=== PATIENT | female | born 1955 | race Caucasian/White ===

== ENCOUNTER 2020-08-17 15:00 | Outpatient (RCR) | payer OTHER, SELFPAY ==
--- NOTE | 2020-07-11 12:24 | MHC.PT.EP ---
[facility] [place] Office [place] [facility] [place] Office [address] Citlalli Hebert [address] [phone] F: [phone] F: [phone] F: [phone] F: [phone] Physical Therapy Plan of Care Date of Evaluation: 07/11/20 Date of Surgery: N/A Diagnosis: cervical disc disorder, unspecified cervical region Assessment: Working PT diagnoses include cervicogenic dizziness, BPPV, and cervical radiculopathy. Will continue to monitor and treat as appropriate. pt presents to physical therapy with pain, decreased range of motion, and impaired postural awareness. pt is a good candidate for skilled PT due to age, potential remediation of impairments, typical disease/condition progression and prognosis, comorbidities, and motivation. pt would benefit from tailored strengthening and stretching exercise program, functional training, postural re-training, neuromuscular re-education, and modalities as needed for pain. Frequency and Duration: The patient will be seen 2x/wk for 5 wks Short Term Goals: pt will be I w/ HEP to promote self-management of condition. pt will improve L cervical rotation by 15 degrees to facilitate ease in mobility for driving. Jail Goals: pt will report statistically significant improvement in self-reported outcome measure, NDI, to promote return to PLOF. pt will report <1/10 L sided neck pain w/ lifting 30# object from ground to chest height to facilitate full return to work. Treatment Plan: Modalities to reduce pain, spasms and effusion. Manual therapy to restore motion and function. Therapeutic exercise to improve strength and flexibility. Neuromuscular re-education for posture and balance. Therapeutic activities to return to functional activities of daily living. Please sign and return to therapist. Thank you for your referral.
--- NOTE | 2020-08-26 09:32 | MHC.PT.DC ---
[facility] [place] Office [place] Office [place] Office [address] Citlalli Hebert [address] [phone] F: [phone] F: [phone] F: [phone] F: [phone] Physical Therapy Discharge Report Diagnosis: cervical disc disorder, unspecified cervical region Date of Surgery: N/A Date of Evaluation: 07/11/20 Date of Discharge: 08/26/20 Treatments to Date: 7 Cancellations to Date: 6 No Shows to Date: 1 Discharge Status: Independent with HEP Patient Elected to Stop Recommend MD Follow-up Discharge Summary: The patient had difficulty progressing in physical therapy. She was unable to increase resistance of the therapeutic exercises throughout this plan of care without significantly increasing pain and symptoms. She would consistently report feeling better when she left therapy but the pain would return after a work day. She is independent with her home exercise program of cervical stretching, cervical active assisted range of motion, periscapular strengthening, and postural exercises. She called our office to discharge herself from this physical therapy plan of care. Electronically signed by: Karen Alonzo PT, DPT Please sign and return to therapist. Thank you for your referral.
== END 2020-08-26 09:32 | disposition other institution (70) ==
LOC: HO.PT 15:00
PROVIDERS: PCP Internal Medicine; Visit Provider Internal Medicine
DX: M50.90 Cervical disc disorder, unspecified, unspecified cervical region (principal); R42 Dizziness and giddiness
CPT/HCPCS: 97110; 97140; 97161

== ENCOUNTER 2020-11-14 06:58 | Outpatient (REF) | payer OTHER, SELFPAY ==
[2020-11-14 07:29] LABS: MANUAL DIFF FLAG NO
[2020-11-14 07:39] LABS: Basophils Absolute Auto 0.1 X10*3/uL (0.0-0.2); Eosinophils Absolute Auto 0.1 X10*3/uL (0.0-0.4); Eosinophils Percent Auto 1.7 % (0-4); Hematocrit 43.4 % (37-47); Hemoglobin 14.2 g/dl (12.0-16.0); Lymphocytes Absolute Auto 2.7 X10*3/uL (1.2-4.9); Lymphocytes Percent Auto 50.5 % (20-40); Mean Corpuscular HGB Conc 32.7 g/dl (31.0-35.0); Mean Corpuscular Hemoglobin 30.5 pg (27.0-33.0); Mean Corpuscular Volume 93.3 fL (80-98); Mean Platelet Volume 9.7 fL (9.4-12.3); Monocytes Absolute Auto 0.2 X10*3/uL (0.1-1.2); Monocytes Percent Auto 4.2 % (2-11); Neutrophils Absolute Auto 2.2 X10*3/uL (2.0-8.3); Neutrophils Percent Auto 42.6 % (45-73); Platelet Count 300 X10*3/uL (160-400); Red Blood Count 4.65 X10*6/uL (4.20-5.50); Red Cell Distribution Width 12.9 % (11.0-16.0); White Blood Count 5.3 X10*3/uL (4.8-10.8)
[2020-11-14 07:54] LABS: Glucose Urine UA NEG (NEG); Nitrite Urine NEG (NEG); Specific Gravity - Urine 1.025 (1.005-1.025); Urine Blood TRACE (NEG); Urine Ketones NEG (NEG); Urine Protein NEG (NEG-TRACE)
[2020-11-14 07:55] LABS: Leukocyte Esterase Urine NEG (NEG)
[2020-11-14 07:56] LABS: Appearance Urine CLEAR; Color Urine YELLOW
[2020-11-14 08:05] LABS: RBC Urine 0-2 /HPF (0); Squamous Epithelial Cell Urine TRACE /LPF; WBC Urine 0 /HPF (0-4)
[2020-11-14 08:21] LABS: Alanine Aminotransferase 45 U/L (0-31); Albumin Level 4.3 g/dL (3.5-5.0); Alkaline Phosphatase 67 U/L (39-117); Anion Gap 12 (12-20); Aspartate Amino Transferase 32 U/L (5-31); Bilirubin Total 0.5 mg/dL (0.0-1.0); Blood Urea Nitrogen 19 mg/dL (9-16); Calcium 9.2 mg/dL (8.4-10.2); Carbon Dioxide 28 mmol/L (22-29); Chloride 104 mmol/L (96-108); Cholesterol 239 mg/dL; Estimated Glomerular Filt Rate > 60; Glucose Fasting 101 mg/dL (60-99); HDL Cholesterol 91 mg/dL; LDL Cholesterol Calculated 136 mg/dl; Potassium 4.4 mmol/L (3.3-5.1); Sodium 140 mmol/L (135-145); Total Protein 7.1 g/dL (6.5-8.0); Triglycerides 64 mg/dL
[2020-11-14 08:53] LABS: TSH reflex Free T4 3.19 uIU/mL (0.32-4.0); Vitamin D 25-OH Total 34.5 ng/mL (>30)
== END 2020-11-14 06:59 | disposition home or self-care (01) ==
LOC: HO.LAB 06:58
PROVIDERS: PCP Internal Medicine; Visit Provider Internal Medicine
DX: Z00.00 Encounter for general adult medical examination without abnormal findings (principal); R42 Dizziness and giddiness; D72.819 Decreased white blood cell count, unspecified; E55.9 Vitamin D deficiency, unspecified
CPT/HCPCS: 36415; 80053; 80061; 81001; 82306; 84443; 85025

== ENCOUNTER 2021-07-11 06:41 | Outpatient (REF) | payer MEDICARE, SELFPAY ==
--- NOTE | ~2021-07-11 | XR_ITS ---
EXAMINATION: XR ABDOMEN KUB CLINICAL INDICATION: Lower back pain COMPARISON: None TECHNIQUE: AP view of the abdomen. FINDINGS: Nonobstructive bowel gas pattern. No dilated loops of bowel. Gas and stool throughout the colon with moderate colonic stool burden. Right upper quadrant surgical clips noted. The lung bases are clear. No acute osseous abnormality. XR/XR KUB IMPRESSION: Moderate colonic stool burden.
[2021-07-11 08:21] LABS: Appearance Urine CLEAR; Color Urine STRAW; Glucose Urine UA NEG (NEG); Leukocyte Esterase Urine NEG (NEG); Nitrite Urine NEG (NEG); Specific Gravity - Urine <= 1.005 (1.005-1.025); Urine Blood NEG (NEG); Urine Ketones NEG (NEG); Urine Protein NEG (NEG-TRACE)
== END 2021-07-11 06:42 | disposition home or self-care (01) ==
LOC: HO.XRAY 06:41
PROVIDERS: PCP Internal Medicine; Visit Provider Physician Assistant
DX: M54.40 Lumbago with sciatica, unspecified side (principal); R30.0 Dysuria
CPT/HCPCS: 74018; 81003

== ENCOUNTER 2021-07-28 10:05 | Outpatient (REF) | payer MEDICARE, SELFPAY ==
--- NOTE | ~2021-07-28 | US_ITS ---
EXAMINATION: US RETROPERITONEAL LIMITED (RENAL ONLY) CLINICAL INFORMATION: Unspecified abdominal pain. COMPARISON: KUB 07/11/2021. TECHNIQUE: Real-time imaging of the kidneys. FINDINGS: RIGHT KIDNEY: 9.0 x 3.9 x 6.3 cm (SAG x AP x TRV). The kidney is normal in size, contour, and echogenicity. Renal cortical thickness is normal. No calculi or focal parenchymal lesions. No hydronephrosis. LEFT KIDNEY: 9.3 x 4.9 x 5.6 cm (SAG x AP x TRV). The kidney is normal in size, contour, and echogenicity. Renal cortical thickness is normal. No calculi or focal parenchymal lesions. No hydronephrosis. US/US renal BI IMPRESSION: Unremarkable renal ultrasound.
== END 2021-07-28 10:06 | disposition home or self-care (01) ==
LOC: HO.HMGCX 10:05
PROVIDERS: PCP Internal Medicine; Visit Provider Physician Assistant
DX: R10.11 Right upper quadrant pain (principal)
CPT/HCPCS: 76775

== ENCOUNTER 2022-02-23 07:09 | Outpatient (REF) | payer MEDICARE, SELFPAY | END 2022-02-23 07:10 | disposition home or self-care (01) | LOC: HO.LAB 07:09 | PROVIDERS: PCP Internal Medicine; Visit Provider Internal Medicine | DX: Z13.89 Encounter for screening for other disorder (principal) ==

== ENCOUNTER 2022-05-22 08:31 | Outpatient (REF) | payer MEDICARE, SELFPAY ==
--- NOTE | ~2022-05-22 | MM_ITS ---
EXAMINATION: BONE DENSITOMETRY CLINICAL INDICATION: Asymptomatic menopausal state. COMPARISON: Previous BD dated 11/08/2017 and baseline BD dated 06/30/2010. TECHNIQUE: Using a [employer] DXA System (software version: 13.1) manufactured by [employer], dual-energy x-ray absorptiometry was performed of the lumbar spine and left hip. The images are of good technical quality. Summary results are attached. FINDINGS: AP SPINE L1-L4: Current: BMD 0.923 g/cm2, Z-score -0.3, T-score -2.1, osteopenia, 1.5% decrease from previous, 8.1% decrease from baseline (<5% change is not significant). Prior: BMD 0.937 g/cm2. Baseline: BMD 1.004 g/cm2. LEFT FEMUR, NECK: Current: BMD 0.536 g/cm2, Z-score -1.9, T-score -3.6, osteoporosis. Prior: BMD 0.625 g/cm2. Baseline: BMD 0.677 g/cm2. LEFT FEMUR, TOTAL: Current: BMD 0.573 g/cm2, Z-score -2.0, T-score -3.4, osteoporosis, 17.0% decrease from previous, 19.3% decrease from baseline (<5% change is not significant). Prior: BMD 0.690 g/cm2. Baseline: BMD 0.710 g/cm2. IDENTIFIED RISK FACTORS: Low calcium intake, osteoporosis, menopause. HISTORY OF FRACTURE: None listed. MEDICATIONS: None listed. MM/XR DEXA axial skeleton IMPRESSION: 1. DIAGNOSIS: Osteoporosis based on the lowest T-score value of -3.6 in the femoral neck applying World Health Organization criteria. 2. 10-YEAR FRACTURE RISK PREDICTION, FRAX: According to the guidelines, FRAX calculation should only be performed on patients in the osteopenia bone density category. Therefore, FRAX was not performed on this patient. 3. Treatment Recommendations: NOF guidelines recommend consideration for treatment in postmenopausal women and men age 50 and older presenting with the following: -A hip or vertebral (clinical or morphometric) fracture. -T-score less than or equal to -2.5 at the femoral neck or spine after appropriate evaluation to exclude secondary causes. -Low bone mass at the hip or spine and a 10-year fracture probability by FRAX of greater than or equal to 3% for hip fracture or greater than or equal to 20% for major osteoporotic fracture based on the [place] adapted WHO algorithm. 4. Other Recommendations: All treatment decisions require clinical judgment and consideration of individual patient factors, including patient preferences, comorbidities, previous drug use, risk factors not captured in the FRAX model (e.g. frailty, falls, vitamin D deficiency, increased bone turnover, interval significant decline in bone density) and possible under or overestimation of fracture risk by FRAX. Additional medical evaluation for secondary cause of low bone mineral density may be appropriate. FUTURE SCAN RECOMMENDATION: People with diagnosed cases of osteoporosis or at high risk for fracture should have regular bone mineral density tests. For patients eligible for Medicare, routine testing is allowed once every 2 years. The testing frequency can be increased to one year for patients who have rapidly progressing disease, those who are receiving or discontinuing medical therapy to restore bone mass, or have additional risk factors.
== END 2022-05-22 08:32 | disposition home or self-care (01) ==
LOC: HO.MAMMO 08:31
PROVIDERS: PCP Internal Medicine; Visit Provider Internal Medicine
DX: Z13.820 Encounter for screening for osteoporosis (principal); Z78.0 Asymptomatic menopausal state; M81.0 Age-related osteoporosis without current pathological fracture
CPT/HCPCS: 77080

== ENCOUNTER 2023-02-13 07:34 | Outpatient (REF) | payer MEDICARE, SELFPAY ==
[2023-02-13 07:45] LABS: MANUAL DIFF FLAG NO
[2023-02-13 08:34] LABS: Basophils Absolute Auto 0.1 X10*3/uL (0.0-0.2); Basophils Percent Auto 1.2 % (0-2); Eosinophils Absolute Auto 0.1 X10*3/uL (0.0-0.4); Eosinophils Percent Auto 3.1 % (0-4); Hematocrit 42.9 % (37.0-47.0); Hemoglobin 13.9 g/dl (12.0-16.0); Imm Gran Abs Auto 0.01 X10*3/uL (0.00-0.03); Imm Gran Pct Auto 0.2 % (0.0-0.4); Lymphocytes Absolute Auto 2.3 X10*3/uL (1.2-4.9); Lymphocytes Percent Auto 54.7 % (20-40); Mean Corpuscular HGB Conc 32.4 g/dl (31.0-35.0); Mean Corpuscular Hemoglobin 30.8 pg (27.0-33.0); Mean Corpuscular Volume 94.9 fL (80.0-98.0); Mean Platelet Volume 9.8 fL (9.4-12.3); Monocytes Absolute Auto 0.2 X10*3/uL (0.1-1.2); Monocytes Percent Auto 5.6 % (2-11); Neutrophils Absolute Auto 1.5 x10*3/uL (2.0-8.3); Neutrophils Percent Auto 35.2 % (45-73); Platelet Count 303 X10*3/uL (160-400); Red Blood Count 4.52 X10*6/uL (4.20-5.50); Red Cell Distribution Width 12.8 % (11.0-16.0); White Blood Count 4.3 X10*3/uL (4.8-10.8)
[2023-02-13 09:21] LABS: Alanine Aminotransferase 34 U/L (0-31); Albumin Level 4.2 g/dL (3.5-5.0); Alkaline Phosphatase 73 U/L (39-117); Anion Gap 12 (12-20); Aspartate Amino Transferase 25 U/L (5-31); Bilirubin Total 0.8 mg/dL (0.0-1.0); Blood Urea Nitrogen 14 mg/dL (9-16); Calcium 9.7 mg/dL (8.4-10.2); Carbon Dioxide 28 mmol/L (22-29); Chloride 105 mmol/L (96-108); Cholesterol 257 mg/dL; Estimated Glomerular Filt Rate > 60; Glucose Fasting 92 mg/dL (60-99); HDL Cholesterol 97 mg/dL; LDL Cholesterol Calculated 148 mg/dl; Potassium 4.1 mmol/L (3.3-5.1); Sodium 141 mmol/L (135-145); Total Protein 7.1 g/dL (6.5-8.0); Triglycerides 62 mg/dL
[2023-02-13 09:39] LABS: Vitamin D 25-OH Total 37.6 ng/mL (>30)
[2023-02-13 10:15] LABS: Appearance Urine Clear; Color Urine Yellow; Glucose Urine UA Negative (Negative); Leukocyte Esterase Urine Trace (Negative); Nitrite Urine Negative (Negative); PH 5.5 (5.0-9.0); Specific Gravity - Urine 1.015 (1.005-1.025); UMIC TRIGGER UACC YES; Urine Blood Trace (Negative); Urine Ketones Negative (Negative); Urine Protein Negative (Neg-Trace)
[2023-02-13 10:20] LABS: Bacteria Urine None Seen (None Seen); Hyaline Casts Urine 0-2 /LPF (0-2); RBC Urine 0-2 /HPF (0-2); Squamous Epithelial Cell Urine 0-2 /HPF (0-2); WBC Urine 0-5 /HPF (0-5)
[2023-02-15 17:49] LABS: Lyme Abs Screen <0.90 index
== END 2023-02-13 07:35 | disposition home or self-care (01) ==
LOC: HO.LAB 07:34
PROVIDERS: Internal Medicine; PCP Internal Medicine; Visit Provider Internal Medicine
DX: Z00.00 Encounter for general adult medical examination without abnormal findings (principal); E55.9 Vitamin D deficiency, unspecified; M81.0 Age-related osteoporosis without current pathological fracture; E78.00 Pure hypercholesterolemia, unspecified; T14.90XA Injury, unspecified, initial encounter; W57.XXXA Bitten or stung by nonvenomous insect and other nonvenomous arthropods, initial encounter; Y93.9 Activity, unspecified; Y92.9 Unspecified place or not applicable; Y99.9 Unspecified external cause status
CPT/HCPCS: 36415; 80053; 80061; 81001; 81003; 82306; 84443; 85025; 86617; 86618

== ENCOUNTER 2023-03-15 06:53 | Outpatient (REF) | payer MEDICARE, SELFPAY ==
--- NOTE | ~2023-03-15 | XR_ITS ---
EXAMINATION: XR lumbar spine 2-3V, XR sacroiliac joint min 3V CLINICAL INFORMATION: Reason for Exam M54.50 - Low back pain, unspecified COMPARISON: Lumbar spine radiographs 09/27/2017 TECHNIQUE: 3 views of the lumbar spine. 3 views of the sacroiliac joints. FINDINGS: 5 nonrib-bearing lumbar-type vertebral bodies. Vertebral body heights are maintained. Alignment is maintained. Minimal degenerative disc disease at L5-S1 with borderline loss of disc space height and mild facet arthropathy slightly progressed from prior. Right upper quadrant cholecystectomy clips. Mild degenerative changes of the right sacroiliac joint with subchondral sclerosis. Sacroiliac joint spaces are maintained. Mild degenerative changes of the hips with some mineralization noted lateral to the left femoral head which may reflect sequelae of chondrocalcinosis. XR/XR lumbar spine 2-3V IMPRESSION: 1. Minimal degenerative disc disease at L5-S1 slightly progressed from prior. 2. Mild degenerative changes of the right sacroiliac joint with subchondral sclerosis. Sacroiliac joint spaces are maintained. 3. Mild degenerative changes of the hips with some mineralization noted lateral to the left femoral head which may reflect sequelae of chondrocalcinosis.
--- NOTE | ~2023-03-15 | XR_ITS ---
EXAMINATION: XR lumbar spine 2-3V, XR sacroiliac joint min 3V CLINICAL INFORMATION: Reason for Exam M54.50 - Low back pain, unspecified COMPARISON: Lumbar spine radiographs 09/27/2017 TECHNIQUE: 3 views of the lumbar spine. 3 views of the sacroiliac joints. FINDINGS: 5 nonrib-bearing lumbar-type vertebral bodies. Vertebral body heights are maintained. Alignment is maintained. Minimal degenerative disc disease at L5-S1 with borderline loss of disc space height and mild facet arthropathy slightly progressed from prior. Right upper quadrant cholecystectomy clips. Mild degenerative changes of the right sacroiliac joint with subchondral sclerosis. Sacroiliac joint spaces are maintained. Mild degenerative changes of the hips with some mineralization noted lateral to the left femoral head which may reflect sequelae of chondrocalcinosis. XR/XR sacroiliac joint min 3V IMPRESSION: 1. Minimal degenerative disc disease at L5-S1 slightly progressed from prior. 2. Mild degenerative changes of the right sacroiliac joint with subchondral sclerosis. Sacroiliac joint spaces are maintained. 3. Mild degenerative changes of the hips with some mineralization noted lateral to the left femoral head which may reflect sequelae of chondrocalcinosis.
== END 2023-03-15 06:54 | disposition home or self-care (01) ==
LOC: HO.XRAY 06:53
PROVIDERS: PCP Internal Medicine; Visit Provider Internal Medicine
DX: M54.50 Low back pain, unspecified (principal)
CPT/HCPCS: 72100; 72202

== ENCOUNTER → 2023-04-18 08:15 | Outpatient (BNV) | payer MEDICARE, SELFPAY | PROVIDERS: PCP Internal Medicine; Visit Provider Radiology Diagnostic Radiology | DX: Z12.31 Encounter for screening mammogram for malignant neoplasm of breast (principal) | CPT/HCPCS: 77063; 77067 ==

== ENCOUNTER 2023-04-18 08:24 | Outpatient (REF) | payer MEDICARE, SELFPAY ==
--- NOTE | ~2023-04-18 | MM_ITS ---
EXAMINATION: MM SCREENING DIGITAL BREAST TOMOSYNTHESIS, BILATERAL CLINICAL INFORMATION: Screening. Asymptomatic. The lifetime risk of breast cancer based on the Tyrer-Cuzick Model is 9.4%. COMPARISON: Mammography: This study is compared with prior exams dating back to 2017. TECHNIQUE: Digital breast tomosynthesis is performed in both the craniocaudal and mediolateral oblique views along with computer-aided detection (CAD). Synthesized 2D images are generated from the tomosynthesis. FINDINGS: The breasts are heterogeneously dense, which may obscure small masses (ACR BI-RADS breast composition Category c). There are no significant masses, abnormal calcifications, or other abnormalities. MM/MM tomosynthesis screening BI IMPRESSION: No mammographic evidence of malignancy. ASSESSMENT: BI-RADS BI-RADS 1 - Negative RECOMMENDATION: Routine annual mammography screening. 1 year F/U This examination should not preclude the clinical evaluation of a suspicious palpable abnormality. This patient's information was entered into a reminder system with a target due date for their next mammogram.
== END 2023-04-18 08:25 | disposition home or self-care (01) ==
LOC: HO.MAMMO 08:24
PROVIDERS: PCP Internal Medicine; Visit Provider Internal Medicine
DX: Z12.31 Encounter for screening mammogram for malignant neoplasm of breast (principal)
CPT/HCPCS: 77063; 77067

== ENCOUNTER 2023-08-29 06:45 | Outpatient (REF) | payer MEDICARE, SELFPAY ==
[2023-08-29 06:58] LABS: MANUAL DIFF FLAG NO
[2023-08-29 07:55] LABS: Basophils Percent Auto 0.7 % (0-2); Eosinophils Absolute Auto 0.1 X10*3/uL (0.0-0.4); Eosinophils Percent Auto 1.7 % (0-4); Hematocrit 41.7 % (37.0-47.0); Hemoglobin 13.8 g/dl (12.0-16.0); Imm Gran Abs Auto 0.01 X10*3/uL (0.00-0.03); Imm Gran Pct Auto 0.2 % (0.0-0.4); Lymphocytes Absolute Auto 2.6 X10*3/uL (1.2-4.9); Lymphocytes Percent Auto 48.5 % (20-40); Mean Corpuscular HGB Conc 33.1 g/dl (31.0-35.0); Mean Corpuscular Hemoglobin 30.9 pg (27.0-33.0); Mean Corpuscular Volume 93.5 fL (80.0-98.0); Mean Platelet Volume 9.9 fL (9.4-12.3); Monocytes Absolute Auto 0.3 X10*3/uL (0.1-1.2); Monocytes Percent Auto 5.2 % (2-11); Neutrophils Absolute Auto 2.4 x10*3/uL (2.0-8.3); Neutrophils Percent Auto 43.7 % (45-73); Platelet Count 289 X10*3/uL (160-400); Red Blood Count 4.46 X10*6/uL (4.20-5.50); Red Cell Distribution Width 12.7 % (11.0-16.0); White Blood Count 5.4 X10*3/uL (4.8-10.8)
[2023-08-29 08:26] LABS: Alanine Aminotransferase 31 U/L (0-31); Albumin Level 4.2 g/dL (3.5-5.0); Alkaline Phosphatase 60 U/L (39-117); Anion Gap 11 (12-20); Aspartate Amino Transferase 22 U/L (5-31); Bilirubin Total 0.6 mg/dL (0.0-1.0); Blood Urea Nitrogen 17 mg/dL (9-16); Calcium 9.5 mg/dL (8.4-10.2); Carbon Dioxide 29 mmol/L (22-29); Chloride 106 mmol/L (96-108); Cholesterol 258 mg/dL (<200); Estimated Glomerular Filt Rate > 60; Glucose Fasting 99 mg/dL (60-99); HDL Cholesterol 96 mg/dL (>40); LDL Cholesterol Calculated 151 mg/dL (<100); Potassium 3.6 mmol/L (3.3-5.1); Sodium 142 mmol/L (135-145); Total Protein 7.3 g/dL (6.5-8.0); Triglycerides 56 mg/dL (<150)
[2023-08-29 08:28] LABS: TSH reflex Free T4 4.73 uIU/mL (0.32-4.0); Vitamin D 25-OH Total 39.4 ng/mL (>30)
[2023-08-29 09:01] LABS: Appearance Urine Clear; Color Urine Yellow; Glucose Urine UA Negative (Negative); Leukocyte Esterase Urine Trace (Negative); Nitrite Urine Negative (Negative); UMIC TRIGGER UACC YES; Urine Blood Trace (Negative); Urine Ketones Negative (Negative); Urine Protein Negative (Neg-Trace)
[2023-08-29 09:07] LABS: Bacteria Urine None Seen (None Seen); Hyaline Casts Urine 0-2 /LPF (0-2); RBC Urine 0-2 /HPF (0-2); Squamous Epithelial Cell Urine 0-2 /HPF (0-2); WBC Urine 0-5 /HPF (0-5)
[2023-08-29 09:13] LABS: Free T4 (Free Thyroxine) 0.94 ng/dL (0.71-1.85)
== END 2023-08-29 06:46 | disposition home or self-care (01) ==
LOC: HO.LAB 06:45
PROVIDERS: PCP Internal Medicine; Visit Provider Internal Medicine
DX: E78.00 Pure hypercholesterolemia, unspecified (principal); E55.9 Vitamin D deficiency, unspecified; I10 Essential (primary) hypertension
CPT/HCPCS: 36415; 80053; 80061; 81001; 81003; 82306; 84439; 84443; 85025

== ENCOUNTER 2023-09-11 09:53 | Outpatient (AMB) | payer MEDICARE, SELFPAY ==
--- NOTE | 2023-09-11 09:56 | MHC.PC.OV ---
Vital Signs 09/11/23 09:58 Height 5 ft 3 in Weight 126 lb 2 oz BMI 22.3 BP 122/72 Blood Pressure Location Lt brachial Position Sitting Pulse 71 Pulse Source Pulse Oximeter Pulse Oximetry (%) 97 Oxygen Delivery Method Room Air Intake Visit Reasons: 6mth f/u Intake Note: Patient is here to follow up on Cervical disc disease, Hypercholesterolemia, Osteoporosis, Vertigo. 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 Detective: Not Required per policy Accompanied by: Self / Same As Patient Allergies penicillin V Adverse Reaction (Intermediate, Verified 09/11/23 10:19) nausea, vomiting Penicillins [PENICILLINS] Adverse Reaction (Intermediate, Verified 09/11/23 10:19) N/V Sulfa (Sulfonamide Antibiotics) [SULFA (SULFONAMIDE ANTIBIOTICS)] Adverse Reaction (Intermediate, Verified 09/11/23 10:19) N/V, nausea, vomiting Medication List - Last Reconciled 09/11/23 by Dylon Somers MD No Known Home Meds Tobacco use date assessed: 09/11/23 Fall risk assessment: No Falls in past year Last assessed Fall Risk: 09/11/23 Dental Screening Dental Screen Date: 09/11/23 Did you have a dental visit in the last 12 months?: Yes Did you have a dental problem in the last 6 months where you did not have access to dental care?: No Was dental information given to patient?: Patient has dentist HPI 6mth f/u HPI Details Patient comes in today for her follow up visit States that she feels okay She denies any headaches or dizziness Denies any chest pains, no SOB No nausea/vomiting, no abdominal pain No change in bowel habits noted Had her follow up labs done a couple of weeks ago - to discuss her results Would like to get her flu shot today PFSH Medical History Pure hypercholesterolemia Arthritis Osteoporosis Vitamin D deficiency Cervical disc disease Recurrent vertigo Surgical History History of colonoscopy (~2013) History of laparoscopic cholecystectomy (~1997) History of appendectomy Family History Father Lung cancer Mother Hypertension Social History Housing: House Alcohol intake: current Alcohol intake frequency: a few times a month Alcohol type: beer Patient Tobacco Use Status: Former Tobacco user Tobacco use type: Cigarette e-Cigarette/Vaping Use: Never Used Second Hand Smoke Exposure: Yes service: No Current occupational status: retired Cognitive needs: No Hearing needs: No Vision needs: No Questionnaire Thrive Questionnaire Date Thrive assessed: 03/12/23 JESSICA-7 AMB Questionnaire JESSICA-7 Date JESSICA - 7 assessed: 03/12/23 Source: Developed by Drs. Moris Waldrop, Ava Baker, Jamel Jarvis and colleagues, with an educational marbella from [employer]. Review of Systems Const Denies chills, Denies difficulty sleeping, Denies fatigue, Denies fever(s) and Denies headache(s) ENT Denies dysphagia, Denies dizziness, Denies otalgia, Denies headache(s), Denies neck pain, Denies odynophagia and Denies sore throat Card Denies chest pain, Denies palpitations and Denies dyspnea Resp Denies cough and Denies dyspnea GI Denies abdominal pain, Denies constipation, Denies dysphagia, Denies heartburn, Denies diarrhea, Denies nausea, Denies odynophagia and Denies vomiting Denies difficulty voiding, Denies nocturia, Denies dysuria and Denies urinary urgency Musc Denies back pain and Denies neck pain Skin/Breast Denies rash Neuro Denies dizziness and Denies headache(s) Endo Denies fatigue and Denies palpitations Physical exam (Primary Care) Vital Signs: Last Vital Signs Pulse 71 09/11/23 09:58 BP 122/72 09/11/23 09:58 Pulse Ox 97 09/11/23 09:58 Oxygen Delivery Method Room Air 09/11/23 09:58 BMI result Body Mass Index 22.3 Tobacco/Smoking Status: Tobacco use Status Tobacco use date assessed 09/11/23 09/11/23 10:01 Patient Tobacco Use Status Former Tobacco user 09/11/23 10:01 Tobacco use type Cigarette 09/11/23 10:01 e-Cigarette/Vaping Use Never Used 09/11/23 10:01 Thrive Assessment: Date of Thrive Assessment Date Thrive assessed 03/12/23 09/11/23 10:01 Const General: no acute distress and alert HENMT Ears: TM's normal bilaterally and EAC's normal Throat: Yes posterior oropharynx normal and Yes tonsils normal (no TP congestion) Neck Neck: Yes no lymphadenopathy and Yes supple Resp Auscultation: clear to auscultation bilaterally, no rales and no wheezes Cardio Rate: regular rate Rhythm: regular rhythm Heart sounds: no murmurs GI Palpation (GI): Soft to palpation and nontender Auscultation: normal bowel sounds General: Yes no CVA tenderness Back/Spine/Pelvis Back: no CVA tenderness Skin Rashes: no rashes Extrem General: Yes no clubbing, cyanosis or edema Office Procedures Flu Questionnaire Does the patient have a severe egg allergy?: No Does the patient have severe life threatening allergies?: No Does the patient have a fever or illness today?: No Has the patient ever had Guillain-[place] Syndrome?: No Has the patient ever had any past reaction to a flu shot?: No Immunizations flu vacc [id number] 6mos up(PF) 60 mcg(15 mcgx4)/0.5 mL IM syringe Performing Provider: Dylon Somers MD Performing Location: [facility] Administered by: NICOLE Andres on 09/11/23 10:20 Dose Route Admin Location Dispensed Lot Number Expiration Date NDC Hasher Operator 0.5 mL IM Right Deltoid 0.5 mL [id number] 03/15/24 08633-758-84 [employer] VIS Given Date VIS Provided VIS Publication Date 09/11/23 Single Vaccine 21 Eligibility Eligibility Date Funding Source Not [facility] Eligible 09/11/23 Private Results Reviewed Results Reviewed: Laboratory Tests 08/29/23 08/29/23 08/29/23 06:50 06:57 06:57 WBC 5.4 Hgb 13.8 Hct 41.7 Plt Count 289 Sodium 142 Potassium 3.6 Creatinine 0.76 Estimated GFR > 60 Fasting Glucose 99 Calcium 9.5 AST 22 ALT 31 Triglycerides 56 Cholesterol 258 H LDL Cholesterol, Calc 151 H HDL Cholesterol 96 25-OH Vitamin D Total 39.4 TSH 4.73 H Free T4 0.94 Ur Specific [place] 1.020 Urine Protein Negative Urine Glucose (UA) Negative Urine Blood Trace H Urine Nitrite Negative Ur Leukocyte Esterase Trace H Assessment and Plan Assessment & Plan (1) Pure hypercholesterolemia: Code(s): E78.00 - Pure hypercholesterolemia, unspecified Plan: Results of her labs done a couple of weeks ago reviewed and discussed with patient - she is advised that her cholesterol levels have remained elevated and are mostly unchanged from her previous results Reinforced low cholesterol diet Have recommended starting her on cholesterol-lowering medications but patient prefers to continue working on her diet for now Admits when questioned that she has been drinking a lot of regular milk lately - advised to try switching over to 1% or skimmed milk instead States that if her cholesterol numbers do not improve over the next few months, then she will agree to start taking Rx for her cholesterol Will have her recheck her labs and fasting lipids in 6 months for follow up (2) Osteoporosis: Code(s): M81.0 - Age-related osteoporosis without current pathological fracture Qualifiers: Osteoporosis type: age-related Presence of current pathological fracture: without current pathological fracture Qualified Code(s): M81.0 - Age-related osteoporosis without current pathological fracture Plan: BMD done back in May 2022 showed a T-score of -3.6 in the left femoral neck Advised that her left femoral neck BMD has declined significantly from her previous scan in 2018 - had a drop of over 17% from her previous scan in in the left femur Patient is physically active and is encouraged to continue to stay active but discussed/cautioned regarding fall precautions Instructed to make sure she is taking OTC Vitamin D and Calcium supplements daily (Vitamin D3 of at least 2000 units QD and Calcium of 1000 or 1200 mg QD) Due to her advanced osteoporosis, she was previously referred to endocrinology for further evaluation and management but states that for unclear reasons, her insurance would not cover the endocrinology consultation and so she never scheduled an appointment (3) Vitamin D deficiency: Code(s): E55.9 - Vitamin D deficiency, unspecified Plan: Continue OTC Vitamin D3 2000 units QD (4) Lower back pain: Code(s): M54.50 - Low back pain, unspecified Qualifiers: Chronicity: unspecified Back pain laterality: bilateral Sciatica presence: unspecified whether sciatica present Qualified Code(s): M54.50 - Low back pain, unspecified Plan: Previous lumbar spine x-rays done back in 2017 came out unremarkable Repeat lumbar spine and SI joint x-rays done back in February 2023 revealed (+) minimal degenerative disc disease at L5-S1 slightly progressed from prior. Mild degenerative changes of the right sacroiliac joint with subchondral sclerosis. Sacroiliac joint spaces are maintained. There are mild degenerative changes of the hips with some mineralization noted lateral to the left femoral head which may reflect sequelae of chondrocalcinosis Reinforced activity and weight-lifting restrictions Advised that if her symptoms get worse, can consider referring her to pain management or orthopedics - patient states that her symptoms have been manageable lately so she does not need anything else at this time (5) Cervical disc disease: Code(s): M50.90 - Cervical disc disorder, unspecified, unspecified cervical region Plan: Cervical spine x-rays done in 2019 revealed (+) multilevel cervical disc disease, especially from C4 to C7 Symptoms have improved somewhat with physical therapy and patient continues to do her neck exercises and stretches as needed to help manage her neck symptoms (6) Elevated TSH: Code(s): R79.89 - Other specified abnormal findings of blood chemistry Plan: Her TSH came back slightly elevated on her recent labs but free T4 level remains normal She is currently clinically euthyroid Will continue to monitor her TFTs for now - will recheck TFTs in 6 months for follow up Plan Flu vaccine given today To return in 6 months for her next annual physical examination Orders: Orders Influenza [id number] Immunization Today Z23 - Encounter for immunization Thyroid Stimulating Hormone 6 Months R79.89 - Other specified abnormal findings of blood chemistry Free T4 (Free Thyroxine) 6 Months R79.89 - Other specified abnormal findings of blood chemistry Comprehensive [place]. Panel Fast 6 Months E78.00 - Pure hypercholesterolemia, unspecified Lipid Panel 6 Months E78.00 - Pure hypercholesterolemia, unspecified UA CC w/rflx Micro + Cult 6 Months R30.0 - Dysuria Complete Blood Count Auto Diff 6 Months I10 - Essential (primary) hypertension Vitamin D 25-OH Total 6 Months E55.9 - Vitamin D deficiency, unspecified Coding Level of Care Code Est Pt Level 4 (40005) Diagnoses Pure hypercholesterolemia E78.00 Age-related osteoporosis without current pathological fracture M81.0 Osteoporosis type: age-related Presence of current pathological fracture: without current pathological fracture Vitamin D deficiency E55.9 Bilateral low back pain, unspecified chronicity, unspecified whether sciatica present M54.50 Chronicity: unspecified Back pain laterality: bilateral Sciatica presence: unspecified whether sciatica present Cervical disc disease M50.90 Elevated TSH R79.89
[2023-09-11 09:58] VITALS: BP 122/72; PULSE 71; O2SAT 97; BMI 22.3
== END 2023-09-11 10:38 | disposition home or self-care (01) ==
PROVIDERS: PCP Internal Medicine; Visit Provider Internal Medicine
DX: E78.00 Pure hypercholesterolemia, unspecified (principal); M81.0 Age-related osteoporosis without current pathological fracture; E55.9 Vitamin D deficiency, unspecified; M54.50 Low back pain, unspecified; M50.90 Cervical disc disorder, unspecified, unspecified cervical region; R79.89 Other specified abnormal findings of blood chemistry; Z23 Encounter for immunization
CPT/HCPCS: 90471; 90686; 99214

== ENCOUNTER → 2024-04-23 08:15 | Outpatient (BNV) | payer MEDICARE, SELFPAY | PROVIDERS: PCP Internal Medicine; Visit Provider Radiology Diagnostic Radiology | DX: Z12.31 Encounter for screening mammogram for malignant neoplasm of breast (principal) | CPT/HCPCS: 77063; 77067 ==

== ENCOUNTER 2024-04-23 08:23 | Outpatient (REF) | payer MEDICARE, SELFPAY ==
--- NOTE | ~2024-04-23 | MM_ITS ---
EXAMINATION: MM SCREENING DIGITAL BREAST TOMOSYNTHESIS, BILATERAL CLINICAL INFORMATION: Screening. Asymptomatic. COMPARISON: Mammography: This study is compared with prior exams dating back to 2019. TECHNIQUE: Digital breast tomosynthesis is performed in both the craniocaudal and mediolateral oblique views along with computer-aided detection (CAD). Synthesized 2D images are generated from the tomosynthesis. FINDINGS: The breasts are heterogeneously dense, which may obscure small masses (ACR BI-RADS breast composition Category c). There are no significant masses, abnormal calcifications, or other abnormalities. MM/MM tomosynthesis screening BI IMPRESSION: No mammographic evidence of malignancy. ASSESSMENT: BI-RADS BI-RADS 1 - Negative RECOMMENDATION: Routine annual mammography screening. 1 year F/U This examination should not preclude the clinical evaluation of a suspicious palpable abnormality. This patient's information was entered into a reminder system with a target due date for their next mammogram. Electronically signed by: Janice Waite MD 05/21/2024 11:16 AM EDT
== END 2024-04-23 08:24 | disposition home or self-care (01) ==
LOC: HO.MAMMO 08:23
PROVIDERS: PCP Internal Medicine; Visit Provider Internal Medicine
DX: Z12.31 Encounter for screening mammogram for malignant neoplasm of breast (principal)
CPT/HCPCS: 77063; 77067

== ENCOUNTER 2024-10-16 07:21 | Outpatient (REF) | payer MEDICARE, SELFPAY ==
[2024-10-16 07:33] LABS: MANUAL DIFF FLAG NO
[2024-10-16 07:47] LABS: Basophils Absolute Auto 0.1 X10*3/uL (0.0-0.2); Basophils Percent Auto 1.3 % (0-2); Eosinophils Absolute Auto 0.1 X10*3/uL (0.0-0.4); Eosinophils Percent Auto 2.6 % (0-4); Hemoglobin 14.7 g/dl (12.0-16.0); Imm Gran Abs Auto 0.01 X10*3/uL (0.00-0.03); Imm Gran Pct Auto 0.2 % (0.0-0.4); Lymphocytes Absolute Auto 2.1 X10*3/uL (1.2-4.9); Lymphocytes Percent Auto 46.1 % (20-40); Mean Corpuscular HGB Conc 34.2 g/dl (31.0-35.0); Mean Corpuscular Hemoglobin 31.3 pg (27.0-33.0); Mean Corpuscular Volume 91.5 fL (80.0-98.0); Mean Platelet Volume 9.4 fL (9.4-12.3); Monocytes Absolute Auto 0.2 X10*3/uL (0.1-1.2); Monocytes Percent Auto 5.2 % (2-11); Neutrophils Percent Auto 44.6 % (45-73); Platelet Count 295 X10*3/uL (160-400); Red Cell Distribution Width 12.5 % (11.0-16.0); White Blood Count 4.6 X10*3/uL (4.8-10.8)
[2024-10-16 08:13] LABS: Alanine Aminotransferase 41 U/L (0-31); Albumin Level 4.3 g/dL (3.5-5.0); Alkaline Phosphatase 68 U/L (39-117); Anion Gap 13 (12-20); Aspartate Amino Transferase 29 U/L (5-31); Bilirubin Total 0.6 mg/dL (0.0-1.0); Blood Urea Nitrogen 21 mg/dL (9-16); Calcium 10.2 mg/dL (8.4-10.2); Carbon Dioxide 28 mmol/L (22-29); Chloride 108 mmol/L (96-108); Cholesterol 234 mg/dL (<200); Estimated Glomerular Filt Rate > 60; Glucose Fasting 94 mg/dL (60-99); HDL Cholesterol 95 mg/dL (>40); LDL Cholesterol Calculated 128 mg/dL (<100); Potassium 4.5 mmol/L (3.3-5.1); Sodium 144 mmol/L (135-145); Total Protein 7.7 g/dL (6.5-8.0); Triglycerides 58 mg/dL (<150)
[2024-10-16 08:26] LABS: Appearance Urine Clear; Color Urine Yellow; Glucose Urine UA Negative (Negative); Leukocyte Esterase Urine Negative (Negative); Nitrite Urine Negative (Negative); PH 5.5 (5.0-9.0); Specific Gravity - Urine 1.015 (1.005-1.025); Urine Blood Negative (Negative); Urine Ketones Negative (Negative); Urine Protein Negative (Neg-Trace)
[2024-10-16 08:31] LABS: Thyroid Stimulating Hormone 3.03 uIU/mL (0.32-4.0); Vitamin D 25-OH Total 39.5 ng/mL (>30)
== END 2024-10-16 07:22 | disposition home or self-care (01) ==
LOC: HO.LAB 07:21
PROVIDERS: PCP Internal Medicine; Visit Provider Internal Medicine
DX: Z00.00 Encounter for general adult medical examination without abnormal findings (principal); I10 Essential (primary) hypertension; E78.00 Pure hypercholesterolemia, unspecified; R79.89 Other specified abnormal findings of blood chemistry; R30.0 Dysuria; E55.9 Vitamin D deficiency, unspecified
CPT/HCPCS: 36415; 80053; 80061; 81003; 82306; 84439; 84443; 85025

== ENCOUNTER 2024-10-20 15:49 | Outpatient (AMB) | payer MEDICARE, SELFPAY ==
[2024-10-20 15:55] VITALS: BP 122/76; PULSE 84; O2SAT 97; BMI 22.8
--- NOTE | 2024-10-20 15:55 | A.OFFPC_ITS ---
Vital Signs 10/20/24 15:55 Height 5 ft 3 in Weight 129 lb BMI 22.8 BP 122/76 Blood Pressure Location Lt brachial Position Sitting Pulse 84 Pulse Source Pulse Oximeter Pulse Oximetry (%) 97 Oxygen Delivery Method Room Air Intake Visit Reasons: Annual PE Plater Supervisor Required: No Accompanied by: Self / Same As Patient Allergies penicillin V Adverse Reaction (Intermediate, Verified 10/20/24 16:37) nausea, vomiting Penicillins [PENICILLINS] Adverse Reaction (Intermediate, Verified 10/20/24 16:37) N/V Sulfa (Sulfonamide Antibiotics) [SULFA (SULFONAMIDE ANTIBIOTICS)] Adverse Reaction (Intermediate, Verified 10/20/24 16:37) N/V, nausea, vomiting Medication List - Last Reconciled 10/20/24 by Dylon Somers MD No Known Home Meds Tobacco use date assessed: 10/20/24 Fall risk assessment: No Falls in past year Last assessed Fall Risk: 10/20/24 Dental Screening Dental Screen Date: 10/20/24 Did you have a dental visit in the last 12 months?: Yes Did you have a dental problem in the last 6 months where you did not have access to dental care?: No Was dental information given to patient?: Patient has dentist HPI Annual PE HPI Details Patient comes in today for her annual physical examination States that she feels well She denies any headaches or dizziness Denies any chest pains, no shortness of breath No nausea/vomiting, no abdominal pain No change in bowel habits noted She denies any acute urinary symptoms She had her follow-up labs done a few days ago - to discuss her results She had her screening colonoscopy last done over 10 years ago in April 2014 and is now due for repeat colonoscopy She had her annual mammogram done in April 2024 and is scheduled for her next mammogram on 04/29/2025 She is up-to-date with her yearly gynecologic exam and Pap smear - these were last done in 2022 Her bone density was done in May 2022 [facility] Medical History (Updated 10/26/24 @ 01:26 by Dylon Somers MD) Lumbar degenerative disc disease Pure hypercholesterolemia Arthritis Osteoporosis Vitamin D deficiency Cervical disc disease Recurrent vertigo Surgical History History of colonoscopy (~2013) History of laparoscopic cholecystectomy (~1997) History of appendectomy Family History Father Lung cancer Mother Hypertension Social History Housing: House Alcohol intake: current Alcohol intake frequency: a few times a month Alcohol type: beer Patient Tobacco Use Status: Former Tobacco user Tobacco use type: Cigarette e-Cigarette/Vaping Use: Never Used Second Hand Smoke Exposure: Yes service: No Current occupational status: retired Cognitive needs: No Hearing needs: No Vision needs: No Questionnaire PHQ-9 Over the last 2 weeks, how often have you been bothered by any of the following problems? 1. Little interest or pleasure in doing things: not at all 2. Feeling down, depressed, or hopeless: not at all 3. Trouble falling or staying asleep, or sleeping too much: not at all 4. Feeling tired or having little energy: not at all 5. Poor appetite or overeating: not at all 6. Feeling bad about yourself - or that you are a failure or have let yourself or your family down: not at all 7. Trouble concentrating on things, such as reading the newspaper or watching television: not at all 8. Moving or speaking so slowly that other people could have noticed. Or the opposite - being so fidgety or restless that you have been moving around a lot more than usual: not at all 9. Thoughts that you would be better off or of hurting yourself in some way: not at all Total score: 0 Depression Screening Interpretation: Negative Depression Screening Done: Yes 17603 - PHQ-9 Billing: Yes Source: Developed by Drs. Moris Waldrop, Ava Baker, Jamel Jarvis and colleagues, with an educational marbella from [email or web address]. Thrive Questionnaire Date Thrive assessed: 10/20/24 I am a: Patient What is your living situation today?: I have a steady place to live Within the past 12 months, did the food you bought not last and you didn't have the money to get more?: Never true Within the past 12 months, did you worry whether your food would run out before you got money to buy more?: Never true Do you have trouble paying for medicines?: No Do you have trouble getting transportation to medical appointments?: No Do you have trouble paying your heating and electricity bill?: No Do you have trouble taking care of your child, family member or friend?: No Do you have trouble with day-to-day activities such as bathing, preparing meals, shopping, managing finances, etc.?: No Are you currently unemployed and looking for a job?: No Are you interested in more education?: No Please select the resources that you would like help with: None Currently or been in a relationship where the following occur: No concerns reported THRIVE Score: 0 AUDIT C Alcohol Use Questionnaire (AUDIT-C) 1. How often do you have a drink containing alcohol?: Monthly or less 2. How many drinks containing alcohol do you have on a typical day when you are drinking?: 1 or 2 3. How often do you have six or more drinks on one occasion?: Never Total Score: 1 Score Reviewed/Action Taken: Yes JESSICA-7 AMB Questionnaire JESSICA-7 Date JESSICA - 7 assessed: 10/20/24 Feeling nervous, anxious, or on edge: 0 = Not at all Not being able to stop or control worryin = Not at all Worrying too much about different things: 0 = Not at all Trouble relaxin = Not at all Being so restless that it is hard to sit still: 0 = Not at all Becoming easily annoyed or irritable: 0 = Not at all Feeling afraid as if something awful might happen: 0 = Not at all Total JESSICA-7 score (0-4 normal; 5-9 mild; 10-14 moderate; 15-21 severe): 0 Source: Developed by Drs. Moris Waldrop, Ava Baker, Jamel Jarvis and colleagues, with an educational marbella from [email or web address]. Review of Systems Const Denies chills, Denies fatigue, Denies fever(s), Denies headache(s) and Denies malaise Eyes Denies blurry vision, Denies change in vision, Denies irritation and Denies itchy eyes ENT Denies dysphagia, Denies dizziness, Denies otalgia, Denies headache(s), Denies nasal congestion, Reports neck pain (on and off), Denies odynophagia, Denies sinus pain and Denies sore throat Card Denies chest pain, Denies rapid heart rate, Denies irregular heart rhythm, Denies palpitations and Denies dyspnea Resp Denies chest congestion, Denies cough, Denies dyspnea and Denies wheezing GI Denies abdominal pain, Denies bloating, Denies constipation, Denies dysphagia, Denies heartburn, Denies diarrhea, Denies nausea, Denies odynophagia and Denies vomiting Denies hematuria, Denies urinary frequency, Denies dysuria, Denies urinary incontinence and Denies urinary urgency Musc Reports back pain (on and off, over the lower back), Denies arthralgias, Denies joint swelling, Denies muscle weakness and Reports neck pain (on and off) Skin/Breast Denies breast pain, Denies breast mass, Denies change in pigmentation, Denies lesions, Denies rash and Denies unusual bruising Neuro Denies dizziness, Denies headache(s) and Denies paresthesias Psych Denies anxiety and Denies depression Endo Denies fatigue and Denies palpitations Michele/Lymph Denies easy bruising Aller/Immun Denies itchy eyes and Denies wheezing Physical exam (Primary Care) Vital Signs: Last Vital Signs Pulse 84 10/20/24 15:55 BP 122/76 10/20/24 15:55 Pulse Ox 97 10/20/24 15:55 Oxygen Delivery Method Room Air 10/20/24 15:55 BMI result Body Mass Index 22.8 Tobacco/Smoking Status: Tobacco use Status Tobacco use date assessed 10/20/24 10/20/24 15:59 Patient Tobacco Use Status Former Tobacco user 10/20/24 15:59 Tobacco use type Cigarette 10/20/24 15:59 e-Cigarette/Vaping Use Never Used 10/20/24 15:59 PHQ-9: PHQ-9 Score PHQ-9: Total score 0 10/20/24 16:52 Depression Screening Interpretation: Negative Thrive Assessment: Date of Thrive Assessment Date Thrive assessed 10/20/24 10/20/24 15:59 Currently or been in a relationship where the following occur: No concerns reported Const General: no acute distress, alert and awake Orientation/consciousness: patient oriented x3 HENMT Head: Yes normocephalic and Yes atraumatic Ears: external ears normal, TM's normal bilaterally and EAC's normal General nose exam: No nasal discharge present Face and sinus: Yes normal facial exam and Yes sinuses nontender Teeth and gingiva: dentition normal Throat: Yes posterior oropharynx normal and Yes tonsils normal (no TP congestion) Eyes Eyelids: Yes eyelids normal Conjunctivae: conjunctivae normal Pupils: Equal, round and reactive pupils present EOM: EOMs intact bilaterally Neck Neck: Yes no lymphadenopathy and Yes supple Thyroid: Thyroid normal Resp Auscultation: clear to auscultation bilaterally, no rales and no wheezes Cardio Rate: regular rate Rhythm: regular rhythm Heart sounds: no murmurs GI Palpation (GI): Soft to palpation, nontender and No hepatosplenomegaly present Auscultation: normal bowel sounds General: Yes no CVA tenderness Back/Spine/Pelvis Back: no CVA tenderness Cervical Spine: Cervical spine tenderness Thoracic/Lumbar Spine: lumbar spinal tenderness (mild) Skin Lesions: no lesions Rashes: no rashes Neuro General: patient oriented x3, moves all extremities, no focal motor deficits and CN's II-XI intact bilaterally Cranial nerves: Yes Equal, round and reactive pupils present Cognition (Neuro): normal cognition Gait exam (Neuro): Normal gait present Extrem General: Yes no clubbing, cyanosis or edema Results Reviewed Results Reviewed: Laboratory Tests 10/16/24 10/16/24 07:28 07:32 WBC 4.6 L Hgb 14.7 Hct 43.0 Plt Count 295 Sodium 144 Potassium 4.5 Creatinine 0.81 Estimated GFR > 60 Fasting Glucose 94 Calcium 10.2 D AST 29 ALT 41 H Triglycerides 58 Cholesterol 234 H LDL Cholesterol, Calc 128 H HDL Cholesterol 95 25-OH Vitamin D Total 39.5 TSH 3.03 Free T4 1.00 Ur Specific Spicer 1.015 Urine Protein Negative Urine Glucose (UA) Negative Urine Blood Negative Urine Nitrite Negative Ur Leukocyte Esterase Negative Coding Level of Care Code Est Pt Prev Care >65y(59718) Diagnoses Annual physical exam Z00.00 Pure hypercholesterolemia E78.00 Age-related osteoporosis without current pathological fracture M81.0 Osteoporosis type: age-related Presence of current pathological fracture: without current pathological fracture Vitamin D deficiency E55.9 Degeneration of intervertebral disc of lumbar region with discogenic back pain M51.360 Disc-related pain type: discogenic back pain only Cervical disc disease M50.90 Elevated TSH R79.89 Colon cancer screening Z12.11 Additional Codes PHQ-9 - 68796 - PHQ-9 Billing: Yes ([id number]) Assessment & Plan Assessment & Plan (1) Annual physical exam: Code(s): Z00.00 - Encounter for general adult medical examination without abnormal findings Category: Medical Plan: Results of her labs done a few days ago reviewed and discussed with patient She had her screening colonoscopy last done over 10 years ago in April 2014 and is now due for repeat colonoscopy She had her annual mammogram done in April 2024 and is scheduled for her next mammogram on 04/29/2025 She is up-to-date with her yearly gynecologic exam and Pap smear - these were last done in 2022 Her bone density was done in May 2022 (2) Pure hypercholesterolemia: Code(s): E78.00 - Pure hypercholesterolemia, unspecified Category: Medical Plan: Reinforced low cholesterol diet Patient is advised that her cholesterol levels have improved from previous and her LDL cholesterol is now down to 128 mg/dl Will have her recheck her labs and fasting lipids in 1 year for follow up (3) Osteoporosis: Code(s): M81.0 - Age-related osteoporosis without current pathological fracture Category: Medical Qualifiers: Osteoporosis type: age-related Presence of current pathological fracture: without current pathological fracture Qualified Code(s): M81.0 - Age- related osteoporosis without current pathological fracture Plan: BMD done back in May 2022 showed a T-score of -3.6 in the left femoral neck Have advised patient that her left femoral neck BMD has declined significantly from her previous scan in 2018, with a drop of over 17% from her previous scan in in the left femur Patient is physically active and is encouraged to continue to stay active but discussed/cautioned regarding fall precautions She is reminded to take OTC Vitamin D and Calcium supplements daily (Vitamin D3 of at least 2000 units QD and Calcium of 1000 or 1200 mg QD) Due to her advanced osteoporosis, she was previously referred to endocrinology for further evaluation and management but states that for unclear reasons, her insurance would not cover the endocrinology consultation and so she never scheduled an appointment Will send her for now for repeat BMD for follow up (4) Vitamin D deficiency: Code(s): E55.9 - Vitamin D deficiency, unspecified Category: Medical Plan: Continue OTC Vitamin D3 2000 units QD (5) Lumbar degenerative disc disease: Code(s): M51.369 - Other intervertebral disc degeneration, lumbar region without mention of lumbar back pain or lower extremity pain Category: Medical Qualifiers: Disc-related pain type: discogenic back pain only Qualified Code(s): M51.360 - Other intervertebral disc degeneration, lumbar region with discogenic back pain only Plan: Previous lumbar spine x-rays done back in 2017 came out unremarkable Repeat lumbar spine and SI joint x-rays done back in February 2023 revealed (+) minimal degenerative disc disease at L5-S1 slightly progressed from prior. Mild degenerative changes of the right sacroiliac joint with subchondral sclerosis. Sacroiliac joint spaces are maintained. There are mild degenerative changes of the hips with some mineralization noted lateral to the left femoral head which may reflect sequelae of chondrocalcinosis Reinforced activity and weight-lifting restrictions Advised that if her symptoms get worse, we can consider referring her to pain management or orthopedics Patient states that her symptoms have been manageable so far so she does not need anything done at this time (6) Cervical disc disease: Code(s): M50.90 - Cervical disc disorder, unspecified, unspecified cervical region Category: Medical Plan: Cervical spine x-rays done in 2019 revealed (+) multilevel cervical disc disease, especially from C4 to C7 Her neck symptoms have improved somewhat with physical therapy and patient continues to do her neck exercises and stretches as needed to help manage her neck symptoms (7) Elevated TSH: Code(s): R79.89 - Other specified abnormal findings of blood chemistry Category: Medical Plan: Her TFTs were normal on her recent labs; patient is clinically euthyroid Will continue to monitor her TFTs and will recheck them in 1 year (8) Colon cancer screening: Code(s): Z12.11 - Encounter for screening for malignant neoplasm of colon Category: Medical Plan: She is now due for repeat colonoscopy and will refer her to GI Plan To return in 1 year for her next annual physical examination Orders: Orders TSH reflex Free T4 1 Year E78.00 - Pure hypercholesterolemia, unspecified, Z00.00 - Encounter for general adult medical examination without abnormal findings UA CC w/rflx Micro + Cult 1 Year R30.0 - Dysuria, Z00.00 - Encounter for general adult medical examination without abnormal findings Vitamin D 25-OH Total 1 Year E55.9 - Vitamin D deficiency, unspecified, Z00.00 - Encounter for general adult medical examination without abnormal findings XR DEXA axial skeleton 03/16/25 M81.0 - Age-related osteoporosis without current pathological fracture, Z78.0 - Asymptomatic menopausal state Complete Blood Count Auto Diff 1 Year D64.9 - Anemia, unspecified, Z00.00 - Encounter for general adult medical examination without abnormal findings Comprehensive [place]. Panel Fast 1 Year E78.00 - Pure hypercholesterolemia, unspecified, Z00.00 - Encounter for general adult medical examination without abnormal findings Lipid Panel 1 Year E78.00 - Pure hypercholesterolemia, unspecified, Z00.00 - Encounter for general adult medical examination without abnormal findings Referrals Gastroenterology Referral Z12.11 - Encounter for screening for malignant neoplasm of colon
== END 2024-10-20 17:28 | disposition home or self-care (01) ==
PROVIDERS: PCP Internal Medicine; Visit Provider Internal Medicine
DX: Z00.00 Encounter for general adult medical examination without abnormal findings (principal); E78.00 Pure hypercholesterolemia, unspecified; M81.0 Age-related osteoporosis without current pathological fracture; E55.9 Vitamin D deficiency, unspecified; M51.360 Other intervertebral disc degeneration, lumbar region with discogenic back pain only; M50.90 Cervical disc disorder, unspecified, unspecified cervical region; R79.89 Other specified abnormal findings of blood chemistry; Z12.11 Encounter for screening for malignant neoplasm of colon

== ENCOUNTER → 2024-10-20 15:49 | Outpatient (BNVA) | payer MEDICARE, SELFPAY | PROVIDERS: PCP Internal Medicine; Visit Provider Internal Medicine | DX: Z00.01 Encounter for general adult medical examination with abnormal findings (principal); E78.00 Pure hypercholesterolemia, unspecified; E55.9 Vitamin D deficiency, unspecified; M81.0 Age-related osteoporosis without current pathological fracture; M51.360 Other intervertebral disc degeneration, lumbar region with discogenic back pain only; M50.90 Cervical disc disorder, unspecified, unspecified cervical region; R79.89 Other specified abnormal findings of blood chemistry | CPT/HCPCS: 96127; 99397 ==

== ENCOUNTER 2025-01-27 09:56 | Emergency (ER) | payer MEDICARE, SELFPAY ==
[2025-01-27] VITALS (7 sets, daily range): BP systolic 132–160; BP diastolic 62–85; PULSE 85–107; RESP 16–18; TEMP 36.9–37; O2SAT 97–98; BMI 25.7
--- NOTE | ~2025-01-27 | CT_ITS ---
EXAMINATION: CT ABDOMEN PELVIS WITHOUT THEN WITH IV CONTRAST HISTORY: lower abd pain. BRBPR COMPARISON: None. TECHNIQUE: CT scan of the abdomen and pelvis was performed before and after the intravenous administration of 80 mL Omnipaque 350. Post contrast imaging was obtained in the arterial and delayed phases to evaluate for GI bleeding. Coronal and sagittal reformatted images were generated and reviewed. Oral contrast material was not administered per department protocol. This CT exam was performed with one or more of the following dose reduction techniques: automated exposure control, adjustment of the mA and/or kV according to patient size, use of iterative reconstruction technique. DLP: 905 mGy-cm ABDOMEN: LOWER CHEST: The visualized lung bases are clear. There is no pleural effusion. CARDIOVASCULATURE: The heart is normal in size. There is no pericardial effusion. LIVER: The liver is normal in size and contour. No liver mass is identified. The hepatic and portal veins are patent. GALLBLADDER / BILE DUCTS: The gallbladder is surgically absent. There is no intra or extrahepatic biliary ductal dilatation. SPLEEN: The spleen is normal in size. No focal splenic lesion is identified. PANCREAS: The pancreas is unremarkable in appearance. ADRENAL GLANDS: Within normal limits. KIDNEYS/RETROPERITONEUM: No renal calculi are identified. There is no hydronephrosis. No renal masses are identified. LYMPH NODES: No abdominal or pelvic lymphadenopathy. VASCULATURE: The abdominal aorta is normal in caliber. MESENTERY/PERITONEUM: No free fluid. No masses. There is no free intraperitoneal gas. STOMACH: The stomach is collapsed, limiting evaluation. SMALL BOWEL: The small bowel is normal in caliber. COLON: There is nodular wall thickening of the entire descending colon extending from the splenic flexure to the sigmoid. There is mild diffuse wall thickening of the sigmoid colon. Findings are consistent with colitis. There is no contrast extravasation to suggest active GI bleeding. APPENDIX: The appendix is not seen, however no inflammatory changes are seen adjacent to the cecum . URINARY BLADDER/PELVIC ORGANS: The urinary bladder is unremarkable. The uterus is unremarkable. BONES / SOFT TISSUES: No suspicious bony or soft tissue abnormalities. CT/CT gi bleed abd pel wo/w IVcon IMPRESSION: Findings consistent with colitis involving the descending and, to a lesser extent the sigmoid colon. This may be infectious, inflammatory, or ischemic in nature. There is no evidence of contrast extravasation to suggest active GI bleeding. Electronically signed by: Moris Bro MD 01/27/2025 12:24 PM EDT RP
--- NOTE | 2025-01-27 10:21 | ED.GENADULT ---
HPI - General Adult General Chief complaint: General Medical Stated complaint: Low Abd Pain Bloody Diarrhea Time Seen by Provider: 01/27/25 10:20 Source: patient, RN notes reviewed and old records reviewed Mode of arrival: ambulatory History of Present Illness ED Provider: Laura Guillermo PA-C HPI narrative: 69-year-old female with a past medical history of HLD, arthritis, osteoporosis, presenting to the ED complaining of lower abdominal pain/cramping, nausea, vomiting and bloody diarrhea x yesterday. Admits to associated chills and lightheadedness/fatigue. Denies current anticoagulation use. Admits to family history of colon CA. denies dysuria/hematuria, melena, flank pain Related Data Home Medications ?Medication ?Instructions ?Recorded ?Confirmed No Known Home Meds 03/06/22 10/20/24 Allergies Allergy/AdvReac Type Severity Reaction Status Date / Time penicillin V AdvReac Intermediate nausea, Verified 01/27/25 10:02 vomiting Penicillins [PENICILLINS] AdvReac Intermediate N/V Verified 01/27/25 10:02 Sulfa (Sulfonamide AdvReac Intermediate N/V, Verified 01/27/25 10:02 Antibiotics) nausea, [SULFA (SULFONAMIDE vomiting ANTIBIOTICS)] Review of Systems Review of Systems: Yes all other systems are reviewed and are negative Constitutional: Constitutional: Reports as per [facility] Past Medical History Attestation statement: The following information was validated with the patient. Source: old records reviewed Medical History Lumbar degenerative disc disease Pure hypercholesterolemia Arthritis Osteoporosis Vitamin D deficiency Cervical disc disease Recurrent vertigo Surgical History History of colonoscopy (~2013) History of laparoscopic cholecystectomy (~1997) History of appendectomy Family History Family History Father Lung cancer Mother Hypertension Social History Social History Housing: House Alcohol intake: current Alcohol intake frequency: a few times a month Alcohol type: beer Patient Tobacco Use Status: Former Tobacco user Tobacco use type: Cigarette Smoked in Last 30 Days: No e-Cigarette/Vaping Use: Never Used Second Hand Smoke Exposure: Yes Use of substances other than those prescribed or required for medical reasons: No Advance Directives: No Advance Directives Information Provided: Yes service: No Current occupational status: retired Cognitive needs: No Hearing needs: No Vision needs: No Physical Exam ED Vital Signs: Vital Signs - 24 hr 01/27/25 10:00 01/27/25 10:49 01/27/25 11:00 Temperature 98.6 F 98.6 F Pulse Rate 107 H 88 Respiratory Rate 16 Blood Pressure 135/85 151/73 H Pulse Oximetry 97 Oxygen Delivery Method 01/27/25 11:03 01/27/25 11:04 01/27/25 13:09 Temperature Pulse Rate 89 95 85 Respiratory Rate 18 Blood Pressure 150/77 H 160/73 H 132/62 Pulse Oximetry 98 Oxygen Delivery Method Room Air BMI result Body Mass Index 25.7 Const General: cooperative, healthy appearing and no acute distress Orientation/consciousness: patient oriented x3 Limitations: no limitations HENMT Head: Yes normal to inspection and Yes atraumatic Ears: hearing grossly normal bilaterally General nose exam: Normal external nose present Face and sinus: Yes normal facial exam Eyes General: appearance normal, both eyes and all related structures EOM: EOMs intact bilaterally Neck Neck: Yes normal visual inspection and Yes no meningeal signs Resp Effort & Inspection: normal respiratory effort and no respiratory distress Auscultation: clear to auscultation bilaterally Cardio Rate: regular rate Heart sounds: S1 normal heart sound present and S2 normal heart sound present GI Inspection: Yes normal to inspection Palpation (GI): Soft to palpation, Tenderness to palpation present (GI) (Lower abdominal) with no rebound tenderness, no guarding and not rigid Rectal Exam - Female: External hemorrhoid(s) present (small @12 o'clock position. No thrombosis or active bleeding. Nontender.) General: Yes no CVA tenderness Back/Spine/Pelvis Back: no CVA tenderness Skin Rashes: no rashes Wounds: no wounds Neuro General: patient oriented x3, tone normal and no meningeal signs Cranial nerves: Yes CN's II-XII intact bilaterally Gait exam (Neuro): Normal gait present Extrem General: Yes normal to inspection Course Course Course Narrative: -1234--no leukocytosis. H/H stable. Labs otherwise reassuring -UA negative -occult stool positive. Stool studies pending CT gi bleed abd pel wo/w IVcon IMPRESSION: Findings consistent with colitis involving the descending and, to a lesser extent the sigmoid colon. This may be infectious, inflammatory, or ischemic in nature. There is no evidence of contrast extravasation to suggest active GI bleeding. > less likely ischemic bowel. Will obtain lactic acid -1433--lactic acid WNL. Ischemic bowel unlikely -them C diff negative. GI panel pending. -1435- on re-evaluation patient reports symptomatic improvement. Denies abdominal pain. Feels comfortable for discharge home at this time Results discussed with patient including worrisome signs and symptoms and strict return precautions, and when to return to the emergency department. They verbalized understanding and feel safe for discharge at this time. Medications Administered Discontinued Medications Generic Name Dose Route Start Last Admin Trade Name Freq PRN Reason Stop Dose Admin Sodium Chloride 1,000 mls @ 999 mls/hr 01/27/25 10:30 01/27/25 12:08 Ns IV 01/27/25 11:30 Infused .Q1H1M RAVI Infusion Acetaminophen 1,000 mg in 100 mls @ 400 mls/hr 01/27/25 10:47 01/27/25 11:22 Ofirmev IV 01/27/25 11:01 Infused ONCE ONE Infusion Sodium Chloride 1,000 mls @ 999 mls/hr 01/27/25 12:30 01/27/25 12:55 Ns IV 01/27/25 13:30 999 mls/hr .Q1H1M RAVI Administration Iohexol 100 ml 01/27/25 11:57 01/27/25 11:57 Iohexol 350 Mg/Ml 100 Ml Infus..Btl IV 01/27/25 11:58 85 ml ONCE ONE Administration Medical Decision Making Medical Decision Making MDM Narrative: 69-year-old female with a past medical history of HLD, arthritis, osteoporosis, presenting to the ED complaining of lower abdominal pain/cramping, nausea, vomiting and bloody diarrhea x yesterday. On exam mildly tachycardic, NAD, nontoxic appearing, abdomen is soft with lower tenderness, no rebound or guarding, small external hemorrhoid without thrombosis or active bleeding appreciated. Red stool noted in cups and on rectal exam. Concern for GI bleed vs diverticulitis/colitis vs gastroenteritis/infectious diarrhea. Rule out anemia and metabolic abnormalities. Low suspicion for severe sepsis at this time. Unlikely ischemic bowel or cholecystitis/pancreatitis Plan: Labs, UA, CT AP, IVF, orthostatics, re-evaluate Please refer to course for remaining clinical decision making, interpretation of labs/imaging results, and discussions with consultants and/or family members. Differential Diagnosis Differential Diagnoses: The differential diagnosis associated with the presentation includes As above Admission/Observation Consideration of admission/observation: Escalation of care including admission/observation considered Lab Data MDM Lab Attestation statement: I reviewed the patient's lab results. 01/27/25 10:45 01/27/25 10:45 Labs: Lab Results 01/27/25 01/27/25 01/27/25 Range/Units 10:45 10:55 13:05 WBC 9.1 (4.8-10.8) X10*3/uL RBC 4.29 (4.20-5.50) X10*6/uL Hgb 13.6 (12.0-16.0) g/dl Hct 39.3 (37.0-47.0) % MCV 91.6 (80.0-98.0) fL MCH 31.7 (27.0-33.0) pg MCHC 34.6 (31.0-35.0) g/dl RDW 13.0 (11.0-16.0) % Plt Count 265 (160-400) X10*3/uL MPV 9.2 L (9.4-12.3) fL Immature Gran % (Auto) 0.2 (0.0-0.4) % Neut % (Auto) 74.7 H (45-73) % Lymph % (Auto) 19.2 L (20-40) % [place] % (Auto) 5.5 (2-11) % Eos % (Auto) 0.1 (0-4) % Baso % (Auto) 0.3 (0-2) % Lymph # (Auto) 1.8 (1.2-4.9) X10*3/uL [place] # (Auto) 0.5 (0.1-1.2) X10*3/uL Eos # (Auto) 0.0 (0.0-0.4) X10*3/uL Baso # (Auto) 0.0 (0.0-0.2) X10*3/uL Abs Immat Gran (auto) 0.02 (0.00-0.03) X10*3/uL Absolute Neuts (auto) 6.8 (2.0-8.3) x10*3/uL Absolute Nucleated RBC 0.000 (0.0-0.012) X10*3/uL Nucleated RBC % (auto) 0.0 (0.0-0.2) /100WBC PT 11.3 (10.9-12.4) SEC INR 1.0 (0.9-1.1) Sodium 143 (135-145) mmol/L Potassium 3.6 (3.3-5.1) mmol/L Chloride 104 (96-108) mmol/L Carbon Dioxide 28 (22-29) mmol/L Anion Gap 15 (12-20) BUN 14 (9-16) mg/dL Creatinine 0.86 (0.5-1.4) mg/dL Estim Creat Clear Calc 57.0 Estimated GFR > 60 Random Glucose 109 (60-115) mg/dL Lactic Acid 0.9 (0.5-2.0) mmol/L Calcium 9.2 D (8.4-10.2) mg/dL Magnesium 2.0 (1.6-2.6) mg/dL Total Bilirubin 0.6 (0.0-1.0) mg/dL AST 27 (5-31) U/L ALT 33 H (0-31) U/L Alkaline Phosphatase 58 (39-117) U/L Total Protein 6.9 (6.5-8.0) g/dL Albumin 4.2 (3.5-5.0) g/dL Lipase 25 (8-78) U/L Urine Color Yellow Urine Appearance Clear Urine pH 7.0 (5.0-9.0) Ur Specific [place] <= 1.005 (1.005-1.025) Urine Protein Negative (Neg-Trace) mg/dL Urine Glucose (UA) Negative (Negative) mg/dL Urine Ketones Negative (Negative) mg/dL Urine Blood Negative (Negative) Urine Nitrite Negative (Negative) Ur Leukocyte Esterase Negative (Negative) Stool Occult Blood POSITIVE (NEGATIVE) C. difficile Tox B Gene NEGATIVE (Negative) Independent Interpretation I performed an independent interpretation of an: CT Scan Radiology Impression Discussion of test interpretation with radiology: I have reviewed the radiologist's reading. External Record Review External record reviewed: Inpatient record, Office record, Outpatient record, Prior outpatient labs, Prior outpatient radiology, Primary care record and Outside ED record Tests considered The following testing was considered but not selected: As above Prescription Management I considered prescription management with: Pain Medication Chronic Conditions Patient?s care impacted by: Other Social Determinants Patient?s care significantly limited by Social Determinants of Health including: Other Social Determinant of Health Discharge Plan Discharge Clinical Impression: Colitis Prescriptions: No Action No Known Home Meds Print Language: Chinese
[2025-01-27 10:50] LABS: MANUAL DIFF FLAG NO
[2025-01-27 10:52] LABS: Basophils Percent Auto 0.3 % (0-2); Eosinophils Percent Auto 0.1 % (0-4); Hematocrit 39.3 % (37.0-47.0); Hemoglobin 13.6 g/dl (12.0-16.0); Imm Gran Abs Auto 0.02 X10*3/uL (0.00-0.03); Imm Gran Pct Auto 0.2 % (0.0-0.4); Lymphocytes Absolute Auto 1.8 X10*3/uL (1.2-4.9); Lymphocytes Percent Auto 19.2 % (20-40); Mean Corpuscular HGB Conc 34.6 g/dl (31.0-35.0); Mean Corpuscular Hemoglobin 31.7 pg (27.0-33.0); Mean Corpuscular Volume 91.6 fL (80.0-98.0); Mean Platelet Volume 9.2 fL (9.4-12.3); Monocytes Absolute Auto 0.5 X10*3/uL (0.1-1.2); Monocytes Percent Auto 5.5 % (2-11); Neutrophils Absolute Auto 6.8 x10*3/uL (2.0-8.3); Neutrophils Percent Auto 74.7 % (45-73); Platelet Count 265 X10*3/uL (160-400); Red Blood Count 4.29 X10*6/uL (4.20-5.50); White Blood Count 9.1 X10*3/uL (4.8-10.8)
[2025-01-27 10:53] LABS: OBS Int Ctl Valid YES; OBS1 POSITIVE (NEGATIVE)
[2025-01-27 11:04] LABS: Lipase 25 U/L (8-78)
[2025-01-27 11:04] LABS: Appearance Urine Clear; Color Urine Yellow; Glucose Urine UA Negative (Negative); Leukocyte Esterase Urine Negative (Negative); Nitrite Urine Negative (Negative); Specific Gravity - Urine <= 1.005 (1.005-1.025); Urine Blood Negative (Negative); Urine Ketones Negative (Negative); Urine Protein Negative (Neg-Trace)
[2025-01-27 11:07] LABS: Alanine Aminotransferase 33 U/L (0-31); Albumin Level 4.2 g/dL (3.5-5.0); Alkaline Phosphatase 58 U/L (39-117); Anion Gap 15 (12-20); Aspartate Amino Transferase 27 U/L (5-31); Bilirubin Total 0.6 mg/dL (0.0-1.0); Blood Urea Nitrogen 14 mg/dL (9-16); Calcium 9.2 mg/dL (8.4-10.2); Carbon Dioxide 28 mmol/L (22-29); Chloride 104 mmol/L (96-108); Estimated Glomerular Filt Rate > 60; Glucose Random 109 mg/dL (60-115); Potassium 3.6 mmol/L (3.3-5.1); Sodium 143 mmol/L (135-145); Total Protein 6.9 g/dL (6.5-8.0)
[2025-01-27] MEDS: 0.9 % Sodium Chloride 1,000 ML 999 ML IV ×2 (11:07→12:55)
[2025-01-27] MEDS: Acetaminophen 1,000 MG/100 ML PIGGYBACK 400 MG IV (11:07)
[2025-01-27 11:16] LABS: Prothrombin Time 11.3 SEC (10.9-12.4)
--- NOTE | 2025-01-27 11:22 | PC.NURSE ---
Report received. Taken over care at this time.
[2025-01-27] MEDS: iohexoL 350 MG/ML 100 ML INFUS..BTL IV (11:57)
[2025-01-27 12:34] LABS: CDiff Gene PCR NEGATIVE (Negative)
[2025-01-27 13:33] LABS: Lactic Acid 0.9 mmol/L (0.5-2.0)
[2025-01-27 14:56] LABS: Adenovirus F 40/41 Not Detected (Not Detect.); Astrovirus Not Detected (Not Detect.); Campylobacter Not Detected (Not Detect.); Cryptosporidium Not Detected (Not Detect.); Cyclospora cayetanensis Not Detected (Not Detect.); E. coli EAEC Not Detected (Not Detect.); E. coli EPEC Not Detected (Not Detect.); E. coli ETEC Not Detected (Not Detect.); E. coli STEC Not Detected (Not Detect.); Entamoeba histolytica Not Detected (Not Detect.); Giardia lamblia Not Detected (Not Detect.); Norovirus GI/GII Not Detected (Not Detect.); Plesiomonas shigelloides Not Detected (Not Detect.); Rotavirus A Not Detected (Not Detect.); Salmonella Not Detected (Not Detect.); Sapovirus Not Detected (Not Detect.); Shigella sp./EIEC Not Detected (Not Detect.); Vibrio Not Detected (Not Detect.); Vibrio Cholerae Not Detected (Not Detect.); Yersinia enterocolitica Not Detected (Not Detect.)
== END 2025-01-27 15:15 | disposition home or self-care (01) ==
PROVIDERS: Physician Assistant; Emergency Provider Emergency Medicine; PCP Internal Medicine
DX: K52.9 Noninfective gastroenteritis and colitis, unspecified (principal); R10.2 Pelvic and perineal pain; K92.1 Melena; R11.0 Nausea; Z79.899 Other long term (current) drug therapy; Z51.81 Encounter for therapeutic drug level monitoring
CPT/HCPCS: 36415; 74178; 80053; 81003; 82272; 83605; 83690; 83735; 85025; 85610; 87493; 87507; 96361; 96374; 99285; J0131; Q9967

== ENCOUNTER → 2025-01-27 10:30 | Outpatient (BNV) | payer MEDICARE, SELFPAY | PROVIDERS: Emergency Provider Emergency Medicine; PCP Internal Medicine; Visit Provider Radiology Diagnostic Radiology | DX: R10.30 Lower abdominal pain, unspecified (principal) | CPT/HCPCS: 74178 ==

== ENCOUNTER 2025-02-16 13:34 | Outpatient (AMB) | payer MEDICARE, SELFPAY ==
--- NOTE | 2025-02-16 13:38 | MHC.PC.OV ---
Vital Signs 02/16/25 13:39 Height 5 ft 3 in Weight 123 lb 6.4 oz BMI 21.9 BP 120/68 Blood Pressure Location Lt brachial Position Sitting Respiration 20 Pulse 76 Pulse Source Pulse Oximeter Temp 98.3 F Temp Source Oral Pulse Oximetry (%) 99 Oxygen Delivery Method Room Air Intake Visit Reasons: [facility] 01/27 Low Abd Pain Bloody Diarrhea Intake Note: Patient is here to follow-up after a visit the emergency department at [facility] on 01/27/2025. Enzyme Chemist Required: No Accompanied by: Self / Same As Patient Allergies penicillin V Adverse Reaction (Intermediate, Verified 02/16/25 13:49) nausea, vomiting Penicillins [PENICILLINS] Adverse Reaction (Intermediate, Verified 02/16/25 13:49) N/V Sulfa (Sulfonamide Antibiotics) [SULFA (SULFONAMIDE ANTIBIOTICS)] Adverse Reaction (Intermediate, Verified 02/16/25 13:49) N/V, nausea, vomiting Medication List - Last Reconciled 02/16/25 by CASTILLO Baez No Known Home Meds Tobacco use date assessed: 02/16/25 Fall risk assessment: No Falls in past year Last assessed Fall Risk: 02/16/25 Dental Screening Dental Screen Date: 02/16/25 Did you have a dental visit in the last 12 months?: Yes Did you have a dental problem in the last 6 months where you did not have access to dental care?: No Was dental information given to patient?: Patient has dentist HPI [facility] 01/27 Low Abd Pain Bloody Diarrhea HPI Details The patient is a 70-year-old female presenting for post [facility] visit with acute gastrointestinal symptoms, including bleeding and vomiting, suspected to be related to colitis. Symptoms began suddenly, characterized by severe vomiting and varying shades of blood in stool. She was evaluated in the emergency room, where colitis was diagnosed, but blood work showed no signs of infection or elevated white blood cells. The initial symptoms stabilized after a day and a half, though she continues to feel abdominal discomfort and fatigue. She adjusted her diet to avoid dairy and consume mild foods, which resulted in some symptom improvement. The patient plans to see Dr. Fernández on February 25 for further evaluation, including a colonoscopy. Will recheck cbc and cmp-she is feeling very tired, and one more day of blood stools after the leaving the hospital [facility] Medical History Lumbar degenerative disc disease Pure hypercholesterolemia Arthritis Osteoporosis Vitamin D deficiency Cervical disc disease Recurrent vertigo Surgical History History of colonoscopy (~2013) History of laparoscopic cholecystectomy (~1997) History of appendectomy Family History Father Lung cancer Mother Hypertension Social History Housing: House Alcohol intake: current Alcohol intake frequency: a few times a month Alcohol type: beer Patient Tobacco Use Status: Former Tobacco user Tobacco use type: Cigarette e-Cigarette/Vaping Use: Never Used Second Hand Smoke Exposure: Yes service: No Current occupational status: retired Cognitive needs: No Hearing needs: No Vision needs: Yes (Reading glasses) Questionnaire PHQ-9 Over the last 2 weeks, how often have you been bothered by any of the following problems? 1. Little interest or pleasure in doing things: not at all 2. Feeling down, depressed, or hopeless: not at all 3. Trouble falling or staying asleep, or sleeping too much: not at all 4. Feeling tired or having little energy: several days 5. Poor appetite or overeating: not at all 6. Feeling bad about yourself - or that you are a failure or have let yourself or your family down: not at all 7. Trouble concentrating on things, such as reading the newspaper or watching television: not at all 8. Moving or speaking so slowly that other people could have noticed. Or the opposite - being so fidgety or restless that you have been moving around a lot more than usual: not at all 9. Thoughts that you would be better off or of hurting yourself in some way: not at all Total score: 1 Depression Screening Interpretation: Negative Depression Screening Done: Yes Source: Developed by Drs. Moris Waldrop, Ava Baker, Jamel Jarvis and colleagues, with an educational marbella from [employer]. Thrive Questionnaire Date Thrive assessed: 02/16/25 I am a: Patient What is your living situation today?: I have a steady place to live Within the past 12 months, did the food you bought not last and you didn't have the money to get more?: Never true Within the past 12 months, did you worry whether your food would run out before you got money to buy more?: Never true Do you have trouble paying for medicines?: No Do you have trouble getting transportation to medical appointments?: No Do you have trouble paying your heating and electricity bill?: No Do you have trouble taking care of your child, family member or friend?: No Do you have trouble with day-to-day activities such as bathing, preparing meals, shopping, managing finances, etc.?: No Are you currently unemployed and looking for a job?: No Are you interested in more education?: No Please select the resources that you would like help with: None Currently or been in a relationship where the following occur: I choose not to answer THRIVE Score: 0 AUDIT C Alcohol Use Questionnaire (AUDIT-C) 1. How often do you have a drink containing alcohol?: 2-3 times a week Total Score: 3 Score Reviewed/Action Taken: No JESSICA-7 AMB Questionnaire JESSICA-7 Date JESSICA - 7 assessed: 02/16/25 Feeling nervous, anxious, or on edge: 3 = Nearly every day Not being able to stop or control worryin = Several days Worrying too much about different things: 1 = Several days Trouble relaxin = Nearly every day Being so restless that it is hard to sit still: 1 = Several days Becoming easily annoyed or irritable: 0 = Not at all Feeling afraid as if something awful might happen: 0 = Not at all Total JESSICA-7 score (0-4 normal; 5-9 mild; 10-14 moderate; 15-21 severe): 9 Source: Developed by Drs. Moris Waldrop, Ava Baker, Jamel Jarvis and colleagues, with an educational marbella from [employer]. Review of Systems Const Reports chills, Reports fatigue (feeling like she is going to faint sometimes), Denies headache(s), Reports lethargy and Reports weakness Eyes Denies loss of vision ENT Denies vertigo, Denies dizziness, Denies headache(s) and Denies sore throat Card Denies chest pain, Denies leg edema and Denies lightheadedness Resp Denies cough, Denies hemoptysis and Denies wheezing GI Reports abdominal pain (ongoing pain in right upper abdomen), Denies melena, Denies constipation, Denies diarrhea and Denies vomiting Denies urinary frequency, Denies dysuria and Denies urinary urgency Neuro Denies Abnormal speech present, Denies vertigo, Denies dizziness, Denies headache(s), Denies loss of vision and Reports weakness Endo Reports fatigue (feeling like she is going to faint sometimes) Michele/Lymph Denies easy bleeding and Denies easy bruising Aller/Immun Denies wheezing Physical exam (Primary Care) Vital Signs: Last Vital Signs Temp 98.3 F 02/16/25 13:39 Pulse 76 02/16/25 13:39 Resp 20 02/16/25 13:39 BP 120/68 02/16/25 13:39 Pulse Ox 99 02/16/25 13:39 Oxygen Delivery Method Room Air 02/16/25 13:39 BMI result Body Mass Index 21.9 Tobacco/Smoking Status: Tobacco use Status Tobacco use date assessed 02/16/25 02/16/25 13:48 Patient Tobacco Use Status Former Tobacco user 02/16/25 13:48 Tobacco use type Cigarette 02/16/25 13:48 e-Cigarette/Vaping Use Never Used 02/16/25 13:48 PHQ-9: PHQ-9 Score PHQ-9: Total score 1 02/16/25 14:04 Depression Screening Interpretation: Negative Thrive Assessment: Date of Thrive Assessment Date Thrive assessed 02/16/25 02/16/25 13:48 Currently or been in a relationship where the following occur: I choose not to answer Const General: healthy appearing, no acute distress, alert and awake Nutritional Appearance: well nourished Orientation/consciousness: oriented to person, oriented to place and oriented to time HENMT Ears: TM's normal bilaterally General nose exam: Normal nasal mucous membranes and turbinates present Eyes Conjunctivae: conjunctivae normal Sclerae: sclerae normal Pupils: Equal, round and reactive pupils present Neck Neck: Yes no lymphadenopathy and Yes no JVD Thyroid: Thyroid normal Carotids: no bruits Resp Effort & Inspection: normal respiratory effort and not tachypneic Auscultation: no crackles, no rales, no rhonchi and no wheezes Cardio Rate: regular rate Rhythm: regular rhythm Heart sounds: no murmurs and normal S1 and S2 GI Palpation (GI): Soft to palpation, Tenderness to palpation present (GI) (mild tenderness in the RUQ-more towards the lateral side), no hepatomegaly and no splenomegaly Auscultation: normal bowel sounds Skin General skin exam: no rashes or lesions noted and dry skin Neuro General: oriented to person, oriented to place and oriented to time Cranial nerves: Yes Equal, round and reactive pupils present Speech: No Abnormal speech present Gait exam (Neuro): Normal gait present Motor exam (neuro): no tremor noted Extrem Right upper extremity: full ROM Left upper extremity: full ROM Right lower extremity: full ROM; no edema Left lower extremity: full ROM; no edema Psych Mental Status: mental status grossly normal Speech and movement: Normal speech and movement present Affect: normal affect Attitude: cooperative Thought process: Normal thought process present Coding Level of Care Code Est Pt Level 3 (37056) Diagnoses Tiredness R53.83 Bloody diarrhea R19.7 Right upper quadrant abdominal pain R10.11 Abdominal location: right upper quadrant Time Spent (min) 32 Assessment & Plan Assessment & Plan (1) Tiredness: Code(s): R53.83 - Other fatigue Category: Medical (2) Bloody diarrhea: Code(s): R19.7 - Diarrhea, unspecified Category: Medical (3) Abdominal pain: Code(s): R10.9 - Unspecified abdominal pain Category: Medical Qualifiers: Abdominal location: right upper quadrant Qualified Code(s): R10.11 - Right upper quadrant pain Plan A colitis diagnosis was confirmed in the emergency setting. Evaluation by GI scheduled for February 25 will further assess the condition. Present symptom management through dietary adjustments has helped stabilize initial severe symptoms. Preparatory tests, including a complete blood count and a comprehensive metabolic panel, will be performed to ensure normalcy in blood cells and metabolic functions ahead of the upcoming GI evaluation due the patient complaints of feeling extremely tired. The patient will revisit the emergency room if critical symptoms reemerge before scheduled care. Patient was informed and verbally consented to the use of an ambient scribe for clinic note documentation during this visit. Orders: Orders Complete Blood Count Auto Diff 02/16/25 R19.7 - Diarrhea, unspecified, R53.83 - Other fatigue Comprehensive Met. Panel 02/16/25 R19.7 - Diarrhea, unspecified, R53.83 - Other fatigue
[2025-02-16 13:39] VITALS: BP 120/68; PULSE 76; RESP 20; TEMP 36.8; O2SAT 99; BMI 21.9
== END 2025-02-16 14:17 | disposition home or self-care (01) ==
LOC: HO.HMCH 13:35
PROVIDERS: PCP Internal Medicine
DX: R53.83 Other fatigue (principal); R19.7 Diarrhea, unspecified; R10.11 Right upper quadrant pain

== ENCOUNTER → 2025-02-16 13:34 | Outpatient (BNVA) | payer MEDICARE, SELFPAY | PROVIDERS: PCP Internal Medicine | DX: R10.11 Right upper quadrant pain (principal); R11.10 Vomiting, unspecified; R19.7 Diarrhea, unspecified; R53.83 Other fatigue | CPT/HCPCS: 96127; 99212 ==

== ENCOUNTER 2025-02-24 07:37 | Outpatient (REF) | payer MEDICARE, SELFPAY ==
[2025-02-24 07:50] LABS: MANUAL DIFF FLAG NO
[2025-02-24 08:24] LABS: Basophils Absolute Auto 0.1 X10*3/uL (0.0-0.2); Basophils Percent Auto 1.3 % (0-2); Eosinophils Absolute Auto 0.1 X10*3/uL (0.0-0.4); Eosinophils Percent Auto 2.8 % (0-4); Hematocrit 42.7 % (37.0-47.0); Hemoglobin 14.3 g/dl (12.0-16.0); Imm Gran Abs Auto 0.01 X10*3/uL (0.00-0.03); Imm Gran Pct Auto 0.2 % (0.0-0.4); Lymphocytes Absolute Auto 2.1 X10*3/uL (1.2-4.9); Mean Corpuscular HGB Conc 33.5 g/dl (31.0-35.0); Mean Corpuscular Hemoglobin 31.4 pg (27.0-33.0); Mean Corpuscular Volume 93.6 fL (80.0-98.0); Mean Platelet Volume 9.8 fL (9.4-12.3); Monocytes Absolute Auto 0.3 X10*3/uL (0.1-1.2); Monocytes Percent Auto 6.7 % (2-11); Neutrophils Absolute Auto 2.1 x10*3/uL (2.0-8.3); Platelet Count 254 X10*3/uL (160-400); Red Blood Count 4.56 X10*6/uL (4.20-5.50); Red Cell Distribution Width 12.8 % (11.0-16.0); White Blood Count 4.7 X10*3/uL (4.8-10.8)
[2025-02-24 09:05] LABS: Albumin Level 4.5 g/dL (3.5-5.0); Alkaline Phosphatase 57 U/L (39-117); Anion Gap 7 (12-20); Aspartate Amino Transferase 33 U/L (5-31); Bilirubin Total 0.4 mg/dL (0.0-1.0); Blood Urea Nitrogen 19 mg/dL (9-16); Calcium 9.7 mg/dL (8.4-10.2); Carbon Dioxide 31 mmol/L (22-29); Chloride 106 mmol/L (96-108); Estimated Glomerular Filt Rate > 60; Glucose Random 89 mg/dL (60-115); Potassium 4.2 mmol/L (3.3-5.1); Sodium 140 mmol/L (135-145); Total Protein 7.2 g/dL (6.5-8.0)
[2025-02-24 09:24] LABS: Alanine Aminotransferase 32 U/L (0-31)
== END 2025-02-24 07:38 | disposition home or self-care (01) ==
LOC: HO.LAB 07:37
PROVIDERS: PCP Internal Medicine
DX: R19.7 Diarrhea, unspecified (principal); R53.83 Other fatigue
CPT/HCPCS: 36415; 80053; 85025

== ENCOUNTER 2025-04-29 08:05 | Outpatient (REF) | payer MEDICARE, SELFPAY ==
--- NOTE | ~2025-04-29 | MM_ITS ---
EXAMINATION: DXA BONE DENSITY AXIAL HISTORY: Z78.0 - Asymptomatic menopausal state TECHNIQUE: Bushido Dual energy absorptiometry (DEXA) of the lumbar spine, total left hip, and femoral neck was performed. COMPARISON: Comparison is made with the prior examination dated 05/22/2022. FINDINGS: The bone mineral density of the lumbar spine is 0.868 g/cm2, corresponding to a T-score of -2.6, and a Z-score of -0.7. This is indicative of osteoporosis.- This represents a BMD change of 6.0% compared to the prior exam. This is statistically significant. The bone mineral density of the left total hip is 0.623 g/cm2, corresponding to a T-score of -3.1, and a Z-score of -1.4. This is indicative of osteoporosis. This represents a BMD change of 8.7% compared to the prior exam. This is statistically significant. The bone mineral density of the left femoral neck is 0.588 g/cm2, corresponding to a T-score of -3.2, and a Z-score of -1.4. This is indicative of osteoporosis. This represents a BMD change of 9.7% compared to the prior exam. MM/XR DEXA axial skeleton IMPRESSION: Based on bone mineral density, and according to World Health Organization (WHO) criteria, the diagnosis is consistent with osteoporosis. Statistically, 68% of repeat scans fall within 1 SD (+/- 0.010 g/cm2 for AP spine L1-L4) and 1 SD (+/- 0.012 g/cm2 for femur total) FRAX is a trademark of the [employer], a World Health Organization (WHO) Collaborating Center. Electronically signed by: Moris Bro MD 04/29/2025 09:15 AM EDT
--- NOTE | ~2025-04-29 | MM_ITS ---
EXAMINATION: MM SCREENING DIGITAL BREAST TOMOSYNTHESIS, BILATERAL CLINICAL INFORMATION: Screening. Asymptomatic. COMPARISON: Comparison made to multiple prior, most recent April 23, 2024, and most remote November 18, 2019. TECHNIQUE: Digital breast tomosynthesis is performed in both the craniocaudal and mediolateral oblique views along with computer-aided detection (CAD). FINDINGS: BREAST COMPOSITION: The breasts are heterogeneously dense, which may obscure small masses (ACR BI-RADS breast composition Category c). BILATERAL BREASTS: No significant masses, suspicious calcifications or other abnormalities are seen in either breast. MM/MM tomosynthesis screening BI IMPRESSION: BILATERAL BREASTS: Negative, no mammographic evidence of malignancy. Normal interval follow-up is recommended in 12 months. ASSESSMENT: BI-RADS 1 - Negative RECOMMENDATION: Routine annual mammography screening. FOLLOW-UP: 1 year F/U This examination should not preclude the clinical evaluation of a suspicious palpable abnormality. This patient's information was entered into a reminder system with a target due date for their next mammogram. Electronically signed by: Alison Fernandes MD 05/03/2025 08:53 PM EDT
== END 2025-04-29 08:06 | disposition home or self-care (01) ==
LOC: HO.MAMMO 08:05
PROVIDERS: PCP Internal Medicine; Visit Provider Internal Medicine
DX: Z12.31 Encounter for screening mammogram for malignant neoplasm of breast (principal); M81.0 Age-related osteoporosis without current pathological fracture; Z78.0 Asymptomatic menopausal state
CPT/HCPCS: 77063; 77067; 77080

== ENCOUNTER → 2025-04-29 08:45 | Outpatient (BNV) | payer MEDICARE, SELFPAY | PROVIDERS: PCP Internal Medicine; Visit Provider Radiology Diagnostic Radiology | DX: E28.39 Other primary ovarian failure (principal) | CPT/HCPCS: 77080 ==

== ENCOUNTER 2025-05-03 11:25 | Day surgery (SDC) | payer MEDICARE, SELFPAY ==
--- OUTSIDE RECORDS SUMMARY | 2025-02-25 06:40 | XMS_ITS ---
Author Organization [facility] Address [address] [place] [address] Care Team Providers Care Pasteurizer Name Role Phone Yonis STEVEN, [place] Primary Care Provider Moris Pratt [phone] Allergies Allergen (clinical drug ingredient) Drug/Non Drug Allergy documented on EMR Reaction Allergy Type Onset Date Status Substance with sulfonamide structure and antibacterial mechanism of action (substance) Sulfa Antibiotics Unknown Drug Allergy Active REASON FOR VISIT patient presents today for colon screening Social History Tobacco Use: Social History Observation Description Date Details (start date - stop date) Never Smoker NA - NA Tobacco Control (Standard) Question Answer Notes Tobacco use: Nonsmoker AUDIT-C (Standard) Question Answer Notes Did you have a drink contain ing alcohol in the past year? Yes How often did you have a dri nk containing alcohol in the past year? 2 to 4 times a month (2 points) How many drinks did you have on a typical day when you were drinking in the past year? 1 or 2 drinks (0 point) How often did you have six o r more drinks on one occasion in the past year? Never (0 point) Points 2 Interpretation Negative Section Notes: occasional beer socially Vital Signs Blood pressure systolic 111 mm Hg 02/26/20 25 Blood pressure diastolic 77 mm Hg 025 Height 63 in 02/25/2025 Weight 123 lbs 02/25/2025 BMI 21.79 kg/m2 02/25/2025 Procedures Procedure Date Ordered Date Performed Result Body Sit e COLONOSCOPY 02/25/2025 N/A Encounters Encounter Location Date Provider Diagnosis [facility] [address] [place] [address] 02/25/2025 Moris Fernández Family history of co priscilla cancer Z80.0 ; Colon cancer screening Z12.11 ; Gastroenteritis K52.9 and Acute colitis K52.9 Assessments Encounter Date Diagnosis (ICD Code) Assessment Notes Treatment Notes Treatment Clinical Notes Section Notes 02/25/2025 Family history of colon cancer (ICD-10 - Z80.0) Overall, So appears quite well. I did recommend a colonoscopy for primarily screening purposes given her family history of colon cancer in her sister and her last colonoscopy being at least 5 years ago. We did review the rationale for this in regard to colorectal cancer prevention and/or early detection. Full consent has been taken from her for this, including risks of bleeding and perforation. The procedure will be done with monitored anesthesia care. In regard to the recent episode of colitis this seems to have basically resolved at this point although she may have some residual mild symptoms of irritable bowel syndrome. I did review this with her and advised her that I suspect things will continue to improve and return to baseline. Since the infectious workup was negative this may have possibly represented a transient episode of ischemic colitis given the somewhat segmental nature of the colitis as described on the CT scan. I do not think she needs any further workup in this regard. Obviously the colonoscopy will be helpful to rule out any residual inflammation, although based on her clinical history, her clinical exam, and her current laboratories I do not think that is the case. I did advise her to contact me prior to the colonoscopy if she has any problems or questions. She was comfortable with this plan. Thank you again for allowing me to participate in So's care. I shall continue to keep you advised of her progress. 02/25/2025 Colon cancer screening (ICD-10 - Z12.11) Overall, So appears quite well. I did recommend a colonoscopy for primarily screening purposes given her family history of colon cancer in her sister and her last colonoscopy being at least 5 years ago. We did review the rationale for this in regard to colorectal cancer prevention and/or early detection. Full consent has been taken from her for this, including risks of bleeding and perforation. The procedure will be done with monitored anesthesia care. In regard to the recent episode of colitis this seems to have basically resolved at this point although she may have some residual mild symptoms of irritable bowel syndrome. I did review this with her and advised her that I suspect things will continue to improve and return to baseline. Since the infectious workup was negative this may have possibly represented a transient episode of ischemic colitis given the somewhat segmental nature of the colitis as described on the CT scan. I do not think she needs any further workup in this regard. Obviously the colonoscopy will be helpful to rule out any residual inflammation, although based on her clinical history, her clinical exam, and her current laboratories I do not think that is the case. I did advise her to contact me prior to the colonoscopy if she has any problems or questions. She was comfortable with this plan. Thank you again for allowing me to participate in So's care. I shall continue to keep you advised of her progress. 02/25/2025 Gastroenteritis (ICD-10 - K52.9) Overall, So appears quite well. I did recommend a colonoscopy for primarily screening purposes given her family history of colon cancer in her sister and her last colonoscopy being at least 5 years ago. We did review the rationale for this in regard to colorectal cancer prevention and/or early detection. Full consent has been taken from her for this, including risks of bleeding and perforation. The procedure will be done with monitored anesthesia care. In regard to the recent episode of colitis this seems to have basically resolved at this point although she may have some residual mild symptoms of irritable bowel syndrome. I did review this with her and advised her that I suspect things will continue to improve and return to baseline. Since the infectious workup was negative this may have possibly represented a transient episode of ischemic colitis given the somewhat segmental nature of the colitis as described on the CT scan. I do not think she needs any further workup in this regard. Obviously the colonoscopy will be helpful to rule out any residual inflammation, although based on her clinical history, her clinical exam, and her current laboratories I do not think that is the case. I did advise her to contact me prior to the colonoscopy if she has any problems or questions. She was comfortable with this plan. Thank you again for allowing me to participate in So's care. I shall continue to keep you advised of her progress. 02/25/2025 Acute colitis (ICD-10 - K52.9) Overall, So appears quite well. I did recommend a colonoscopy for primarily screening purposes given her family history of colon cancer in her sister and her last colonoscopy being at least 5 years ago. We did review the rationale for this in regard to colorectal cancer prevention and/or early detection. Full consent has been taken from her for this, including risks of bleeding and perforation. The procedure will be done with monitored anesthesia care. In regard to the recent episode of colitis this seems to have basically resolved at this point although she may have some residual mild symptoms of irritable bowel syndrome. I did review this with her and advised her that I suspect things will continue to improve and return to baseline. Since the infectious workup was negative this may have possibly represented a transient episode of ischemic colitis given the somewhat segmental nature of the colitis as described on the CT scan. I do not think she needs any further workup in this regard. Obviously the colonoscopy will be helpful to rule out any residual inflammation, although based on her clinical history, her clinical exam, and her current laboratories I do not think that is the case. I did advise her to contact me prior to the colonoscopy if she has any problems or questions. She was comfortable with this plan. Thank you again for allowing me to participate in So's care. I shall continue to keep you advised of her progress. Plan Of Treatment Pending Test Test Name Order Date COLONOSCOPY 02/25/2025 Next Appt Details Provider Name:Moris Fernández , 05/03/2025 02:30:00 PM, [address] [place] [address] , [place], [place], [phone], Progress Notes * SO DONALDSON LDOB: [birth year] (70 yo F)Acc No.[id number]:02/25/2025 Progress Notes Patient: SO LESLIE Provider: Montrell Fernández MD :1955 A ge:70 Y S ex:Female Date:02/25/2025 Address:[address] [place], [place] [id number] Pcp:Dylon Somers MD Subjective: * Chief Complaints: * 1 . Patient presents today for colon screening. * HPI: i ncontinence: I saw So in consultation today in regard to her recent episode of colitis, family history of colon cancer, and discussion of colorectal cancer screening. As you know, So is a healthy 70-year-old female who presently feels well. She describes 2 or 3 negative colonoscopies in the past. Her most recent one was at least 5 or 6 years ago as far as she can recall. She has a family history of colon cancer in a sister in her 60s and other siblings with colon polyps. In general So is feeling well but did have an episode of what appears to have been a self-limited colitis last month for which she was seen in the ER. A CT scan described colitis involving the descending colon extending from the splenic flexure to the sigmoid colon. The small bowel appeared normal. At that time she had presented with diarrhea, abdominal pain, and some bleeding. She was discharged from the ER and subsequently has been much better. She still gets occasional abdominal cramps but her bowel movements have been back to normal and there has been no further bleeding. She enjoys a good appetite and denies any significant heartburn or dysphagia. She denies any jaundice, fevers, nor weight loss. She has not noticed any melena. Her laboratories in the ER last month were all normal including a CBC with a hemoglobin of 13.6, normal chemistries and renal function, and normal LFTs. She did have a negative stool GI panel and a negative stool for C. difficile. Laboratories done just yesterday revealed again normal chemistries, normal LFTs, and a normal CBC. * Medical History: D enies HI,DM,CVA,Lung disease,renal disease, Arthritis /osteoporosis, Vertigo, Acute colitis involving the descending colon in January 2025 for which she was seen at [facility]. A CT scan described changes of colitis from the splenic flexure to the sigmoid colon. Workup was negative including GI panel and C. difficile. This resolved without any particular treatment., She describes 3 previous negative screening colonoscopies, with the last one being in approximately 2019 or 2020. * Surgical History: a ppendectomy , cholecystectomy . * Family History: F ather: , lung cancer. M other: alive 92 yrs, diagnosed with Diabetes. sister living( enriqueta) colon cancer / well now. * Social History: T obacco Use: T obacco Control (Standard) T obacco use: N onsmoker. M iscellaneous: M arital status: single. Occupation: retired. D rug/Alcohol: A THELMA-C (Standard) D id you have a drink containing alcohol in the past year? Y es,?How often did you have a drink containing alcohol in the past year? 2 to 4 times a month (2 points), H ow many drinks did you have on a typical day when you were drinking in the past year? 1 or 2 drinks (0 point), H ow often did you have six or more drinks on one occasion in the past year? N ever (0 point), P oints 2 , I nterpretation N egative. o ccasional beer socially. * Medications: N one * Allergies: S ulfa Antibiotics. Objective: * Vitals: W t:123lbs, Ht:63in, BMI: 21.79 Index, BP:111/77mm Hg, Ht-cm: 160.02, Wt-k.79. Assessment: * Assessment: 1. F amily history of colon cancer - Z80.0 (Primary) 2 . C olon cancer screening - Z12.11 3 . G astroenteritis - K52.9 4 . A cute colitis - K52.9 Overall, So appears quite well. I did recommend a colonoscopy for primarily screening purposes given her family history of colon cancer in her sister and her last colonoscopy being at least 5 years ago. We did review the rationale for this in regard to colorectal cancer prevention and/or early detection. Full consent has been taken from her for this, including risks of bleeding and perforation. The procedure will be done with monitored anesthesia care. In regard to the recent episode of colitis this seems to have basically resolved at this point although she may have some residual mild symptoms of irritable bowel syndrome. I did review this with her and advised her that I suspect things will continue to improve and return to baseline. Since the infectious workup was negative this may have possibly represented a transient episode of ischemic colitis given the somewhat segmental nature of the colitis as described on the CT scan. I do not think she needs any further workup in this regard. Obviously the colonoscopy will be helpful to rule out any residual inflammation, although based on her clinical history, her clinical exam, and her current laboratories I do not think that is the case. I did advise her to contact me prior to the colonoscopy if she has any problems or questions. She was comfortable with this plan. Thank you again for allowing me to participate in So's care. I shall continue to keep you advised of her progress. Plan: * Treatment: 2.?Colon cancer screening?Procedure: COLONOSCOPY* with MAC sched for 05/03/25 a t 2:30 pmmiralax * Procedure Codes: 4 [id number] DIAGNOSTIC COLONOSCOPY * Preventive Medicine: Screenings: F all Risk Screening F all Risk Assessment: N o falls in the past year, S creening: N o falls in the past year, A ssessment: N ot performed, no reason specified, P raiza of Care: N ot documented, no reason specified. * * The named appointment provid er may or may not be the originator of this progress note, and it is not deemed complete until electronically signed by the appointment provider. Sign off status: Pending * Provider: Montrell Fernández MD Date: 0 02/25/2025 Generated for Estuardo lebron/Danyell/Mike on: 03/12/2025 09:17 AM EDT History and Physical Notes * HPI (History of Present Illness) Category Sub-Category Detail Notes Category Not es incontinence I saw So in consultation today in regard to her recent episode of colitis, family history of colon cancer, and discussion of colorectal cancer screening. As you know, So is a healthy 70-year-old female who presently feels well. She describes 2 or 3 negative colonoscopies in the past. Her most recent one was at least 5 or 6 years ago as far as she can recall. She has a family history of colon cancer in a sister in her 60s and other siblings with colon polyps. In general So is feeling well but did have an episode of what appears to have been a self-limited colitis last month for which she was seen in the ER. A CT scan described colitis involving the descending colon extending from the splenic flexure to the sigmoid colon. The small bowel appeared normal. At that time she had presented with diarrhea, abdominal pain, and some bleeding. She was discharged from the ER and subsequently has been much better. She still gets occasional abdominal cramps but her bowel movements have been back to normal and there has been no further bleeding. She enjoys a good appetite and denies any significant heartburn or dysphagia. She denies any jaundice, fevers, nor weight loss. She has not noticed any melena. Her laboratories in the ER last month were all normal including a CBC with a hemoglobin of 13.6, normal chemistries and renal function, and normal LFTs. She did have a negative stool GI panel and a negative stool for C. difficile. Laboratories done just yesterday revealed again normal chemistries, normal LFTs, and a normal CBC.
[2025-04-29 16:08] VITALS: BMI 21.8
--- NOTE | 2025-04-30 09:43 | HO.ANESPROP2 ---
Documented by User: Vania Martin NP 04/30/25 09:44 HPI - Anesthesia Eval Consult details Narrative: 70yo F for Colonoscopy PMFSH Active Problems Active Problems: All Active Problems Abdominal pain (Acute) Tiredness (Acute) Bloody diarrhea (Acute) Colon cancer screening (Acute) Lumbar degenerative disc disease (Acute) Elevated TSH (Acute) Cervical cancer screening (Acute) Breast cancer screening by mammogram (Acute) Tick bite (Acute) Annual physical exam (Acute) Left flank pain (Acute) Lower back pain (Acute) Vitamin D deficiency (Acute) Osteoporosis (Acute) Pure hypercholesterolemia (Acute) Cervical disc disease (Acute) Recurrent vertigo (Acute) Past Medical History Medical History Lumbar degenerative disc disease Pure hypercholesterolemia Arthritis Osteoporosis Vitamin D deficiency Cervical disc disease Recurrent vertigo Family History Family History Father Lung cancer Mother Hypertension Surgical History Surgical History History of colonoscopy (~2013) History of laparoscopic cholecystectomy (~1997) History of appendectomy Social History Social History Housing: House Are you a primary critical care nurse specialist to a significant other at home: No Do you presently have visiting nurse or other home services: No Alcohol intake: current Alcohol intake frequency: a few times a month Alcohol type: beer Patient Tobacco Use Status: Former Tobacco user Tobacco use type: Cigarette e-Cigarette/Vaping Use: Never Used Second Hand Smoke Exposure: Yes Use of substances other than those prescribed or required for medical reasons: No Are you DNR?: No Advance Directives: No Advance Directives Information Provided: Yes Patient : No : No Poor oral hygiene: Yes service: No Current occupational status: retired Cognitive needs: No Hearing needs: No Vision needs: Yes (Reading glasses) Meds Allergies Allergy/AdvReac Type Severity Reaction Status Date / Time penicillin V AdvReac Intermediate nausea, Verified 05/03/25 12:52 vomiting Penicillins (PENICILLINS) AdvReac Intermediate N/V Verified 05/03/25 12:52 Sulfa (Sulfonamide AdvReac Intermediate N/V, Verified 05/03/25 12:52 Antibiotics) (SULFA nausea, (SULFONAMIDE ANTIBIOTICS)) vomiting Home Medications ?Medication ?Instructions ?Recorded ?Confirmed ?Last Taken ?Type No Known Home Meds 03/06/22 02/16/25 Unknown History Exam Height,Weight and Vital Signs: Height 5 ft 3 in Weight 55.792 kg Assessment and Plan Assessment Anesthesia Assessment: Chart Reviewed Documented by User: Rodney Tyler MD 05/03/25 12:54 PMFSH Past Medical History Medical History Lumbar degenerative disc disease Pure hypercholesterolemia Arthritis Osteoporosis Vitamin D deficiency Cervical disc disease Recurrent vertigo Functional capacity: independent ambulation Patient : No Family History Family History Father Lung cancer Mother Hypertension Family history of problems with anesthesia: No Surgical History Surgical History History of colonoscopy (~2013) History of laparoscopic cholecystectomy (~1997) History of appendectomy History of Problems with Anesthesia: No Social History Social History Housing: House Are you a primary critical care nurse specialist to a significant other at home: No Do you presently have visiting nurse or other home services: No Alcohol intake: current Alcohol intake frequency: a few times a month Alcohol type: beer Patient Tobacco Use Status: Former Tobacco user Tobacco use type: Cigarette e-Cigarette/Vaping Use: Never Used Second Hand Smoke Exposure: Yes Use of substances other than those prescribed or required for medical reasons: No Are you DNR?: No Advance Directives: No Advance Directives Information Provided: Yes Patient : No : No Poor oral hygiene: Yes service: No Current occupational status: retired Cognitive needs: No Hearing needs: No Vision needs: Yes (Reading glasses) Meds Allergies Allergy/AdvReac Type Severity Reaction Status Date / Time penicillin V AdvReac Intermediate nausea, Verified 05/03/25 12:52 vomiting Penicillins (PENICILLINS) AdvReac Intermediate N/V Verified 05/03/25 12:52 Sulfa (Sulfonamide AdvReac Intermediate N/V, Verified 05/03/25 12:52 Antibiotics) (SULFA nausea, (SULFONAMIDE ANTIBIOTICS)) vomiting Home Medications ?Medication ?Instructions ?Recorded ?Confirmed ?Last Taken ?Type No Known Home Meds 03/06/22 02/16/25 Unknown History Exam Exam Date and Time: 05/03/2025 Airway Mallampati Class: II TM Dist: >3cm Neck ROM: Full Denture: Upper Partial: Upper Loose/Missing/Broken Teeth: Yes Heart: rrr Lungs: cta Assessment and Plan Final Anesthetic Review Family History of Problems with Anesthesia: No History of Problems with Anesthesia: No NPO: Yes ASA Class: II Final Preanesthetic Review: No Changes in Pt Med Stat, Meds/Allgs Chart Reviewed, Consent Obtained/Reviewed and Anes Risks/Benef Reviewed Patient Risk: Low Procedure Risk: Low Anesthetic Plan Anesthetic Plan: GA Disposition: Standard PACU
[2025-05-03 11:55] VITALS: BP 150/67; PULSE 75; RESP 12; TEMP 36.1; O2SAT 99; BMI 21.1
[2025-05-03] MEDS: Lactated Ringers 1,000 ML 100 ML IVCONT (12:09)
[2025-05-03 14:00] VITALS: BP 109/58; PULSE 68; RESP 16; TEMP 36.6; O2SAT 99
--- NOTE | 2025-05-03 14:08 | P.BOP_ITS ---
Brief Operative Note Date of Service: 05/03/25 Pre-op diagnosis: Screening Post-op diagnosis: other (Polyp, Limited prep) Procedure: Colonoscopy to the cecum and TI with biopsies Surgeon: Moris Fernández MD Anesthesia: MAC Was an Assistant Professor Of Communication used for this Procedure?: No Estimated blood loss (mL): 2.0 Pathology: other (A. Appendiceal orifice polyp) Condition: stable Disposition: PACU
[2025-05-03 14:15] VITALS: BP 114/61; PULSE 68; RESP 16; TEMP 36.6; O2SAT 99
--- NOTE | 2025-05-03 14:50 | OP_ITS ---
DATE OF SERVICE: 05/03/2025 SURGEON: Moris Fernández MD INDICATIONS: The patient presents for evaluation of her family history of colon cancer and colon polyps, with need for colorectal cancer screening. Full consent has been obtained from her for this, including risks of bleeding and perforation. PREOPERATIVE DIAGNOSIS: POSTOPERATIVE DIAGNOSIS: PROCEDURE PERFORMED: Colonoscopy to the cecum and terminal ileum with biopsies. ESTIMATED BLOOD LOSS: COMPLICATIONS: ANESTHESIA: Medications use, monitored anesthesia care. ASSISTANTS: SPECIMENS: PREOPERATIVE DIAGNOSES: Colorectal cancer screening, family history of colon cancer, family history of colon polyps. POSTOPERATIVE DIAGNOSES: Colorectal cancer screening, family history of colon cancer, family history of colon polyps, colon polyp in area of appendiceal orifice, limited prep, diverticulosis, and internal hemorrhoids. DESCRIPTION OF PROCEDURE: The patient was placed in the left lateral decubitus position. The digital rectal exam revealed no abnormalities. The Olympus video pediatric colonoscope was entered into the rectum and advanced easily to the cecum. Once in the cecum, I did identify cecal pouch with appendiceal orifice. Within the appendiceal orifice was a flat, approximately 5 mm polypoid area, which did not appear definitively adenomatous. Multiple biopsies were obtained from it. I do not think it was completely removed, however. The remainder of the cecum and ileocecal valve appeared normal. The terminal ileum was cannulated and appeared normal. The scope was withdrawn back in the colon. The scope was then slowly withdrawn assessing all mucosal surfaces carefully. Preparation was good but had some limitations throughout the colon, particularly in the left colon. It was difficult to suction due to some residual stool. I did not visualize any sign of polyps, colitis, nor angiodysplasia. There were some diverticula noted in the sigmoid colon. In the rectum, scope was retroflexed visualizing internal hemorrhoids, but no other pathology. The rectal mucosa appeared normal. Scope was straightened and withdrawn from the patient. She tolerated the procedure wll and was transferred to the recovery area in stable condition. IMPRESSION: 1. Question of polyp in the appendiceal orifice. 2. Limited prep. 3. Diverticulosis. 4. Internal hemorrhoids. PLAN: The results of the biopsy will be checked. If the appendiceal orifice polyp is an adenomatous polyp, I would recommend a repeat colonoscopy this year or by next year with a 2-day prep for better clean out and better visualization. If the appendiceal orifice is only hyperplastic or inflammatory, then I would recommend she do a Cologuard test this year, and if negative, we could repeat the colonoscopy within 2 or 3 years with a better prep again. She has already had 3 negative colonoscopies in the past as well. If the Cologuard happens to be positive, then we would want to repeat the colonoscopy this year with a 2-day prep as well. She was advised not to use any aspirin and NSAIDs for 1 week. This has been discussed with her sister. MD EMANUEL Castellanos/BRENDAN / [id number] MTDD
== END 2025-05-03 14:54 | disposition home or self-care (01) ==
PROVIDERS: PCP Internal Medicine; Visit Provider Internal Medicine
PROC: 0DJD8ZZ Inspection of Lower Intestinal Tract, Via Natural or Artificial Opening Endoscopic (ICD-10-PCS; CPT 45378; principal; 2025-05-03 12:40)
DX: Z12.11 Encounter for screening for malignant neoplasm of colon (principal); D12.6 Benign neoplasm of colon, unspecified; K57.30 Diverticulosis of large intestine without perforation or abscess without bleeding; K64.8 Other hemorrhoids; Z80.0 Family history of malignant neoplasm of digestive organs; Z83.719 Family history of colon polyps, unspecified; E78.00 Pure hypercholesterolemia, unspecified; E55.9 Vitamin D deficiency, unspecified
CPT/HCPCS: 45380; 88305; J2704